=== PATIENT | male | born 1955 | race Caucasian/White ===

== ENCOUNTER → 2018-09-22 17:50 | Outpatient (CLI) | payer BC, SELFPAY ==
[2015-12-21 20:18] VITALS: BMI 34.8
== END ==
PROVIDERS: Family Provider Family Medicine; PCP Family Medicine; Referring Provider Nurse Practitioner Family; Visit Provider Nurse Practitioner Family
DX: R35.0 Frequency of micturition (principal)
CPT/HCPCS: 87086

== ENCOUNTER → 2018-11-30 07:31 | Outpatient (CLI) | payer BC, SELFPAY ==
[2015-12-21 20:18] VITALS: BMI 34.8
--- NOTE | 2018-11-30 07:42 | US_ITS ---
PROCEDURES: ULTRASOUND AORTA REASON FOR EXAM: Male, 63 years old. Abdominal aortic aneurysm seen on CT TECHNIQUE: Ultrasound evaluation of the aorta was performed with real-time and static dickinson-scale imaging. COMPARISON: CT abdomen and pelvis dated 09/21/2015 FINDINGS: There is no elongation or tortuosity of the abdominal aorta. Aorta measures: Proximal 2.3 cm. Middle 1.7 cm. Distal 3.2 cm. Aorta measure transversely: Proximal 2.9 cm. Middle 1.9 cm. Distal 3.2 cm. Right iliac artery measures: 1 cm. Right iliac artery measure transversely: 1.1 cm. Left iliac artery measures: 0.8 cm. Left iliac artery measure transversely: 1.1 cm. There is a demonstrated aneurysm.. Distal aortic fusiform aneurysm; 3.2 x 3.2 cm US/Aorta IMPRESSION: Fusiform distal aortic aneurysm as detailed above Electronically Signed: Renny Muñoz DO at 10:44 EDT Tel , Service support ,
[2018-11-30 09:48] LABS: ALB/GLOB Ratio 1.1 RATIO (0.9-2.4); AST(SGOT) 16 U/L (15-37); Alanine Aminotransfer ALT/SGPT 26 U/L (16-61); Albumin, Serum 3.8 g/dL (3.2-5.0); Alkaline Phosphatase 88 U/L (45-117); Anion Gap 6 (5-15); BUN 22 mg/dL (7-18); BUN/Creat Ratio 24.7 RATIO (10-20); Calcium,Total 8.8 mg/dL (8.5-10.1); Chloride 105 mmol/L (98-107); Cholesterol 187 mg/dL (200); Creatinine, Serum 0.89 mg/dL (0.70-1.30); EST Glomerular Filtration Rate 92 mL/min (>60); Est Glom Filt Rate - Afr Amer 111 mL/min (>60); Globulin 3.5 g/dL (2.2-4.2); Glucose 105 mg/dL (74-106); High Density Lipoprotein 45 mg/dL; PSA,Total - Annual Screen 0.93 ng/mL (0.00-4.00); Potassium 4.2 mmol/L (3.5-5.1); Protein, Total 7.3 g/dL (6.4-8.2); Sodium Level 141 mmol/L (136-145); Triglycerides 84 mg/dL; Very Low Density Lipoprotein 17 mg/dL (5-40)
== END ==
PROVIDERS: Family Provider Family Medicine; PCP Family Medicine; Referring Provider Family Medicine; Visit Provider Family Medicine
DX: Z00.00 Encounter for general adult medical examination without abnormal findings (principal); I71.4 Abdominal aortic aneurysm, without rupture; R73.01 Impaired fasting glucose; Z12.5 Encounter for screening for malignant neoplasm of prostate
CPT/HCPCS: 36415; 76775; 80053; 80061; 84153; G0103

== ENCOUNTER 2019-02-12 00:14 | Emergency (ER) | payer BC, SELFPAY ==
[2019-02-12 00:25] VITALS: BP 139/88; PULSE 102; RESP 18; TEMP 36.4; O2SAT 93; BMI 36.1
[2019-02-12 00:31] VITALS: O2SAT 93
--- NOTE | 2019-02-12 00:56 | EKG12_ITS ---
Test Reason : SOB Blood Pressure : / mmHG Vent. Rate : 100 BPM Atrial Rate : 100 BPM P-R Int : 176 ms QRS Dur : 078 ms QT Int : 338 ms P-R-T Axes : 087 025 050 degrees QTc Int : 436 ms Normal sinus rhythm Normal ECG Confirmed by RANCHO LE, CARRINGTON ([id number]), scientific publications editor YEFRI GARCIA ([id number]) on 02/13/2019 1:49:36 PM Referred By: BB Confirmed By:CARRINGTON VICKERS MD
--- NOTE | 2019-02-12 00:56 | RAD_ITS ---
HISTORY: COUGH Tamp; SOB X 2 DAYSINCREASED SEVERITY TONIGHTHX OF COPD ADDITIONAL HISTORY: None provided. COMPARISON: 12/21/2015 TECHNIQUE: Frontal and lateral chest radiographs. Number of images including paperwork: 2 FINDINGS: LUNGS AND PLEURA: Hyperinflation. No consolidation, mass or pleural effusion. Peribronchial thickening. CARDIAC SILHOUETTE: Unremarkable. MEDIASTINUM AND LEIDY: Aortic calcification. UPPER ABDOMEN: Unremarkable. SKELETON AND SOFT TISSUES: No acute findings. Degenerative changes. OTHER DEVICES AND HARDWARE: None. RAD/Chest PA and Lateral IMPRESSION: Peribronchial thickening as can be seen with bronchitis and airways disease. Hyperinflation suggesting COPD. at 0142 Reported and signed by: Sarah Zabala MD Electronically Signed: Sarah Zabala MD at 1:42 EDT Tel , Service support ,
--- NOTE | 2019-02-12 00:56 | ED.VIS.DYS ---
History of Present Illness Chief Complaint: Shortness of Breath Informant: Patient Onset: Days - 2 Activity at onset: Exertion Timing: Continuous Quality: Wheezing Current Severity: Mild Maximum Severity: Moderate Worsened by: Coughing, Exertion. Not Worsened By: Lying flat Relieved by: Albuterol - and atrovent en route by EMS, Oxygen, Rest Associated Symptoms: Cough, White sputum, Yellow sputum. Negative for: Bloody Sputum, Ear pain, Fever, Rhinorrhea, Sore throat, Sweats Chest Pain: Continuous, Tightness - mild Narrative: Feels like COPD flaring up. Very hot and humid weather. Does have air conditioning. No swelling in his legs. No history of heart problems that he knows of. Prior similar symptoms: Yes - COPD - Past Medical History (1) COPD (chronic obstructive pulmonary disease) Status: Chronic (2) GERD (gastroesophageal reflux disease) Status: Chronic (3) Hypertension Status: Chronic Past Medical History - Allergies and Home Meds Allergies/Adverse Reactions: Allergies No Known Allergies Allergy (Verified 02/12/19 00:15) Primary Care Physician: Gary Ramirez MD [Primary Care Provider] - Surgical History: - - Remote hx of back surgery Lives: With Family Smoking Status: Former smoker - Family History Maternal Family History: Reports: Dementia Paternal Family History: Reports: Heart Disease Review of Systems General: Denies: Chills, Fever, Sweats Eyes: Denies: Visual changes - bilaterally, Diplopia ENT: Denies: Rhinorrhea, Sore throat Cardiovascular: Reports: Chest pain. Denies: Palpitations Respiratory: Reports: Dyspnea, Cough, Sputum, Dyspnea on exertion. Denies: Orthopnea Gastrointestinal: Denies: Abdominal pain, Nausea, Vomiting, Diarrhea, Melena, Hematochezia Genitourinary: Denies: Dysuria, Hematuria, Frequency Musculoskeletal: Denies: Back pain, Extremity Pain Skin: Denies: Rash, Wounds Neurological: Denies: Headache, Weakness, Numbness Physical Exam Vital Signs/Narrative: Vital Signs Temp Pulse Resp BP Pulse Ox 02/12/19 00:25 97.6 F L 102 H 18 139/88 H 93 General: Well nourished, Well developed, No Acute Distress Head: Normocephalic, Atraumatic Eyes: Perrl, EOMI ENT: Moist mucous membranes, No rhinorrhea Neck: Supple, Nontender Cardiovascular: Regular rate, Regular rhythm, No murmurs Respiratory: No distress, Chest nontender, Wheezing - Slight end expiratory bilaterally, Diminished Abdomen: Soft, Nontender, Nondistended, Normal bowel sounds Back: Nontender, Normal Inspection Extremities: Nontender, No edema. Negative for: Calf Tenderness Skin: Normal color, No rash, No Trauma Neurological: Alert, Oriented x3, Cranial nerves II-XII grossly intact, Normal Strength, Normal Sensation Psychological: Normal affect, Normal Mood Diagnostic/Tx/Re-eval Impressions Chest X-Ray 02/12/19 00:56 IMPRESSION: Peribronchial thickening as can be seen with bronchitis and airways disease. Hyperinflation suggesting COPD. at 0142 Reported and signed by: Sarah Zabala MD Electronically Signed: Sarah Zabala MD at 1:42 EDT Tel , Service support , 02/12/19 00:56 Chest PA and Lateral [RAD] Stat - Rhythm Strip Rhythm Strip: Sinus Rhythm Rate: 100 Ectopy: None - EKG Initial EKG Interpretation: Sinus Rhythm, No Acute Injury Pattern - Normal EKG Treatment - Dyspnea: Oxygen, Albuterol, Antibiotics, Steroid Repeat Evaluation: Improved - Medical Decision Making Patient feeling much better after treatment. Chest x-ray shows chronic scarring, no acute infiltrates. Unknown if this is viral etiology or due to the weather, but we will cover him with broad-spectrum antibiotics and steroids. He is comfortable with discharge home. ED Disposition - Plan for ED Patient: Disposition: Home or Assisted Living Diagnosis: COPD exacerbation Instructions: Copd Flare Prescriptions: Azithromycin 250 mg PO DAILY #4 tab Transmission Status: Pending to [facility] #30 Prednisone [Deltasone] 40 mg PO DAILY #10 tab Transmission Status: Pending to [facility] #[facility] Referrals: Gary Ramirez MD [Primary Care Provider] - 3-5 Days if not improving
[2019-02-12 01:01] VITALS: BP 139/88; PULSE 88; RESP 16; TEMP 36.4; O2SAT 93
[2019-02-12] MEDS: MethylPREDNISolone 125 MG/2 ML Vial IV (01:08)
[2019-02-12 01:35] VITALS: PULSE 94; RESP 18
[2019-02-12] MEDS: Albuterol 2.5 MG/3 ML VIAL.NEB. INHALATION ×2 (01:35→01:43)
[2019-02-12] MEDS: Azithromycin 250 MG Tablet 500 MG PO (02:52)
[2019-02-12 03:01] VITALS: BP 119/70; PULSE 103; RESP 20; O2SAT 92
== END 2019-02-12 03:10 | disposition home or self-care (01) ==
PROVIDERS: Emergency Provider Emergency Medicine; Family Provider Family Medicine; PCP Family Medicine
DX: J44.1 Chronic obstructive pulmonary disease with (acute) exacerbation (principal); I10 Essential (primary) hypertension; K21.9 Gastro-esophageal reflux disease without esophagitis; Z79.899 Other long term (current) drug therapy; Z87.891 Personal history of nicotine dependence
CPT/HCPCS: 71046; 93005; 94640; 96374; 99284; A4216

== ENCOUNTER 2019-02-14 02:35 | Inpatient (IN) | payer BC, SELFPAY ==
[2019-02-14] VITALS (15 sets, daily range): BP systolic 106–153; BP diastolic 57–85; PULSE 90–128; RESP 18–24; TEMP 36.4–37.6; O2SAT 85–96; BMI 38.3; BMI 36.7
--- NOTE | 2019-02-14 02:54 | EKG12_ITS ---
Test Reason : SOB Blood Pressure : / mmHG Vent. Rate : 111 BPM Atrial Rate : 111 BPM P-R Int : 166 ms QRS Dur : 076 ms QT Int : 316 ms P-R-T Axes : 088 038 067 degrees QTc Int : 429 ms Sinus tachycardia Otherwise normal ECG Confirmed by YUSUF SOLOMON ([id number]), mapping editor SERINA TOLBERT ([id number]) on 02/16/2019 9:58:48 AM Referred By: FIONA Confirmed By:YUSUF SOLOMON
--- NOTE | 2019-02-14 02:54 | RAD_ITS ---
HISTORY: SOB AND COUGH HX OF COPD ADDITIONAL HISTORY: None provided. COMPARISON: 02/12/2019 TECHNIQUE: Frontal chest radiograph. Number of images including paperwork: 2 FINDINGS: LUNGS AND PLEURA: No consolidation, mass or pleural effusion. Peribronchial thickening. Mild linear opacities suggestive of subsegmental atelectasis versus scarring. CARDIAC SILHOUETTE: Unremarkable. MEDIASTINUM AND LEIDY: Aortic calcification. UPPER ABDOMEN: Unremarkable. SKELETON AND SOFT TISSUES: No acute findings. OTHER DEVICES AND HARDWARE: None. RAD/Chest 1 View (Portable) IMPRESSION: Peribronchial thickening as can be seen with bronchitis and airways disease. at 0401 Reported and signed by: Sarah Zabala MD Electronically Signed: Sarah Zabala MD at 4:01 EDT Tel , Service support ,
[2019-02-14] MEDS: Albuterol 2.5 MG/3 ML VIAL.NEB. INHALATION (03:10)
[2019-02-14] MEDS: Ipratropium/Albuterol Sulfate 3 ML AMPUL.NEB INHALATION ×6 (03:10→22:50)
[2019-02-14 03:17] LABS: Absolute Lymphocyte Count 1.57 X10^3/uL (0.83-4.51); Basophil# 0.06 X10^3/uL; Basophil% 0.4 % (0-1); Eosinophil# 0.04 X10^3/uL; Eosinophils% 0.2 % (0-5); Hemoglobin 16.5 g/dL (13.0-16.5); Lymphocyte # 1.57 X10^3/ul (4.0); Lymphocyte % 9.2 % (19-41); Mean Corpuscular Hgb 30.9 pg (27.0-32.0); Mean Corpuscular Volume 93.6 fL (80-94); Mean Platelet Vol. 10.3 fl (6.2-12.0); Monocyte# 2.98 X10^3/uL; Monocyte% 17.4 % (0-10); NRBC Flagged by Analyzer 0 % (0-5); Neutrophil # 12.32 X10^3/uL (2.7-7.7); Neutrophil % 71.8 % (47-70); POSITIVE DIFFERENTIAL YES; Platelet Count 293 K/mm3 (150-450); RBC Distribution Width CV 13.5 % (11.6-14.6); RBC Distribution Width SD 47.2 fl (35.1-43.9); Red Blood Count 5.34 M/mm3 (4.6-6.2); White Blood Count 17.1 K/mm3 (4.4-11.0)
[2019-02-14 03:22] LABS: Differential Indicated SCAN CRITERIA MET
[2019-02-14] MEDS: 0.9% Normal Saline 1,000 ML 1000 ML IV (03:25)
[2019-02-14] MEDS: MethylPREDNISolone 125 MG/2 ML Vial IV (03:25)
[2019-02-14 03:32] LABS: Anion Gap 9 (5-15); BUN 33 mg/dL (7-18); BUN/Creat Ratio 33.4 RATIO (10-20); Calcium,Total 9.1 mg/dL (8.5-10.1); Chloride 101 mmol/L (98-107); Creatinine, Serum 0.99 mg/dL (0.70-1.30); EST Glomerular Filtration Rate 82 mL/min (>60); Est Glom Filt Rate - Afr Amer 99 mL/min (>60); Estimated Creatinine Clearance 75.81 ml/min; Glucose 129 mg/dL (74-106); Sodium Level 142 mmol/L (136-145)
[2019-02-14 03:41] LABS: Allen Test POS; Base Excess 3 mmol/L (-2 to +2); Bicarbonate 28.7 mmol/L (22-26); Blood Gas Specimen Type ART; O2 Delivery Device Nasal Can; PO2 73 mmHG (75-100); SITE L Radial; SO2 94 % (95-99); Time Given 330; Total Carbon Dioxide 30 mmol/L; pCO2 51.2 mmHg (35-45); pH 7.36 (7.35-7.45)
[2019-02-14 03:50] LABS: Differential Comment SCANNED
--- NOTE | 2019-02-14 04:44 | ED.DCSUM_ITS ---
- ER Visit Summary Date of Service: 02/14/19 Chief Complaint: Shortness of breath, COPD History of Present Illness: The patient is a 63 M who presents with shortness of breath. Initially began to feel more short of breath 5 days ago. He developed a productive cough with green sputum. He was seen 3 days ago and diagnosed with a COPD flare. He was put on antibiotics and steroids. He did initially improved. However he is began to worsen last night. He complains of a lot of chest tightness. No fevers no pain no vomiting. He quit smoking 5 years ago. Physical Examination: Heart rate 124, respiratory rate 23, initial pulse ox 85% on 2 L improved to greater than 92% on 4 L Heart is regular tachycardia Patient has severely diminished air exchange throughout lung fletcher Abdomen soft Alert Test Results: EKG shows sinus rhythm at a rate of 111. Labs notable for white count of 17.1, lactic acid normal. ABG shows pH 7.36, PCO2 51, PO2 33. Chest x-ray shows peribronchial thickening. Emergency Department Course and Treatment: Patient was treated with IV Solu- Medrol and albuterol and Atrovent aerosols. Given his initial improvement and then worsening I was also concerned about possible pneumonia so lactic acid and cultures were sent. X-ray does not show any focal infiltrate. He is improved on reevaluation. He has improved air exchange. However he is still tachypneic with an increased oxygen requirement. I do feel he has failed outpatient treatment and will need admission. Patient was discussed with the hospitalist who agrees to admit. Treatment Plan: [] Disposition: Admit Impression: COPD exacerbation This note was generated with [employer] dictation software. It may contain incorrect words, spelling, and punctuation that were not noted in review of the chart prior to signing ED Disposition - Plan for ED Patient: Referrals: Gary Ramirez MD [Primary Care Provider] -
--- NOTE | 2019-02-14 05:04 | HP.PCM_ITS ---
Problem List (1) COPD (chronic obstructive pulmonary disease) Status: Chronic (2) Hypertension Status: Chronic (3) GERD (gastroesophageal reflux disease) Status: Chronic History of Present Illness Date of Admission: 02/14/19 Chief Complaint: Shortness of breath The patient is a 63 year old M with PMH as below who presents with shortness of breath. He states that he started feeling short of breath on Wednesday and he called his doctor and unfortunate was unable to see him, but his doctor did call him in a prescription for azithromycin and prednisone. He has been taking that since Wednesday and initially got a little bit better until last night when he got worse and presented to the hospital. He was a 2 pack-a-day smoker and he quit 5 years ago and he has been doing fairly well since then. He does not have frequent COPD exacerbations and this is probably the worst one requiring admission in 4 years. In the ER he was found to be hypoxic to 85% on his home 2 L, and he also has a leukocytosis which is secondary to his home prednisone that he has been on for 3 days. He does have some sputum production though no fevers or consolidation on his chest x-ray. Past Medical History Past Medical History (Chronic Problems): Chronic Problems COPD (chronic obstructive pulmonary disease) (Chronic) Hypertension (Chronic) GERD (gastroesophageal reflux disease) (Chronic) Allergies No Known Allergies Allergy (Verified 02/14/19 03:26) Home Medications: Ambulatory Orders Medication Instructions Recorded Valsartan [Diovan] 160 mg PO DAILY 03/28/14 Pantoprazole Sodium [Protonix] 40 mg PO DAILY 12/21/15 Albuterol Inhaler [Ventolin Hfa] 2 puff INHALATION Q4H PRN PRN #2 12/24/15 inhaler Fluticasone/Salmeterol [Advair 1 puff INHALATION BID #2 inhaler 12/24/15 250/50 Mcg Diskus] Oxygen, Home [Home Oxygen] 2 lpm NASAL CONT #1 unit 12/24/15 Azithromycin 250 mg PO DAILY #4 tab 02/12/19 Prednisone [Deltasone] 40 mg PO DAILY #10 tab 02/12/19 Surgical History: - - Remote hx of back surgery Psychiatric History: No pertinent psych hx Smoking Status: Former smoker Tobacco Use: Cigarettes Alcohol: None Drugs: None - *Family History Maternal History Items: Diabetes, Dementia Paternal History Items: Diabetes, Heart Disease Review of Systems Constitutional: Denies: Chills, Fever, Weight Change HEENT: Denies: Head Aches, Sinus Congestion, Sinus Drainage Cardiovascular: Denies: Chest Pain, Palpitations Respiratory: Reports: Cough, Shortness of Breath, Sputum production. Denies: Shortness of breath at rest Gastrointestinal: Denies: Abdominal Pain, Nausea, Vomiting Genitourinary: Denies: Dysuria Musculoskeletal: Denies: Joint Pain, Joint Tenderness Skin: Denies: Rash, Wounds Neurological: Denies: Numbness, Tingling, Focal weakness Psychiatric: Denies: Anxiety, Depression Hematologic/ Lymphatic: Denies: Easy Bruising, Easy Bleeding VTE Information - Inpt Only VTE Present on Admission: No - Physical Exam General: Alert, Oriented x3, Cooperative, No apparent distress HEENT: Atraumatic, PERRLA, EOMI, Normocephalic Oral: Dry Mucosa Neck: Supple, No JVD Lungs: Diminished, Wheezes, - - Poor air movement Cardiovascular: Regular rate, Regular Rhythm, Normal S1, Normal S2, No murmurs Abdomen: Soft, Non Tender, Non-Distended, No Hepato-splenomegaly Extremities: No edema, Capillary Refill Less than 3 Seconds Skin: No rashes, No breakdown Neurological: Neuro grossly intact, Sensory exam intact to light touch and pain Psych/Mental Status: Normal Affect, Appropriate Vital Signs Temp Pulse Resp BP Pulse Ox 98.2 F 102 H 20 H 126/76 H 94 02/14/19 02:36 02/14/19 04:59 02/14/19 04:59 02/14/19 04:59 02/14/19 04:59 Oxygen Flow Rate (L/min) 4 Oxygen Delivery Method Nasal Cannula Weight: 252 lb 3.341 oz Body Mass Index (BMI) 38.3 Laboratory Tests Past 24 Hrs 02/14/19 02/14/19 02/14/19 03:05 03:05 03:05 WBC 17.1 H RBC 5.34 Hgb 16.5 Hct 50.0 MCV 93.6 MCH 30.9 MCHC 33.0 RDW Std Deviation 47.2 H RDW Coeff of Alberto 13.5 Plt Count 293 MPV 10.3 Immature Gran % (Auto) 1.000 H Neut % (Auto) 71.8 H Lymph % (Auto) 9.2 L Sublette % (Auto) 17.4 H Eos % (Auto) 0.2 Baso % (Auto) 0.4 Absolute Neuts (auto) Not Reportable Absolute Lymphs (auto) 1.57 Absolute Nucleated RBC 0.00 Nucleated RBC % 0 Differential Comment SCANNED Diff Path Review May foll Specimen Type Sample Site pH Bicarbonate Actual POC Total CO2 Base Excess O2 Saturation ABG pCO2 ABG pO2 Ubaldo Test O2 Delivery Device Liter Flow Blood Gas Notified Whom Blood Gas Notified Time Sodium 142 Potassium 4.0 Chloride 101 Carbon Dioxide 32.0 Anion Gap 9 BUN 33 H Creatinine 0.99 Estim Creat Clear Calc 75.81 Est GFR (MDRD) Af Amer 99 Est GFR (MDRD) Non-Af 82 BUN/Creatinine Ratio 33.4 H Glucose 129 H Lactic Acid 1.0 Calcium 9.1 02/14/19 03:34 WBC RBC Hgb Hct MCV MCH MCHC RDW Std Deviation RDW Coeff of Alberto Plt Count MPV Immature Gran % (Auto) Neut % (Auto) Lymph % (Auto) Sublette % (Auto) Eos % (Auto) Baso % (Auto) Absolute Neuts (auto) Absolute Lymphs (auto) Absolute Nucleated RBC Nucleated RBC % Differential Comment Diff Path Review Specimen Type ART Sample Site L Radial pH 7.36 Bicarbonate Actual 28.7 H POC Total CO2 30 Base Excess 3 H O2 Saturation 94 L ABG pCO2 51.2 H ABG pO2 73 L Ubaldo Test POS O2 Delivery Device Nasal Can Liter Flow 4.0 Blood Gas Notified Whom ED MD Blood Gas Notified Time 330 Sodium Potassium Chloride Carbon Dioxide Anion Gap BUN Creatinine Estim Creat Clear Calc Est GFR (MDRD) Af Amer Est GFR (MDRD) Non-Af BUN/Creatinine Ratio Glucose Lactic Acid Calcium Assessment/Plan All Active Problems COPD exacerbation (Acute) Leukocytosis (Acute) 1. Acute on chronic hypoxic respiratory failure secondary to COPD exacerbation -Continue with his oral prednisone -Start duo nebs every 4 while awake -Resume his home Advair -We will continue with nasal cannula, he does wear 2 L as needed at home -Blood cultures are pending, however chest x-ray is negative for consolidation 2. HTN -Blood pressure is stable in the 110's to 140s -Continue with valsartan 3. GERD -Stable -Continue with PPI DVT: Lovenox Code Visit Inpatient E&M: 52005 Init Hosp L2
--- NOTE | 2019-02-14 08:06 | PCM.PN.BLA ---
Progress Note 63-year-old male with past medical history chronic hypoxic respiratory failure secondary COPD, on 2 L of oxygen at home admitted in the early hours of this morning with progressive shortness of breath and has been managed as acute COPD exacerbation. Patient was seen and examined. He feels much better. He feels that things are starting to be loose for him. Denied any fever or chills. He is currently on 4 L of oxygen. We will continue on DuoNeb breathing treatments [id number], continue oral prednisone Possible discharge tomorrow, after evaluating for ambulatory oxygen
[2019-02-14] MEDS: Losartan Potassium 50 MG Tablet PO (09:39)
[2019-02-14] MEDS: Pantoprazole Sodium 40 MG Tablet PO (09:39)
[2019-02-14] MEDS: Enoxaparin 40 MG/0.4 ML Syringe SC (09:39)
[2019-02-14] MEDS: predniSONE 20 MG Tablet 40 MG PO (09:39)
--- NOTE | 2019-02-14 09:49 | CASEMGMT ---
RN CM Assessment Presentation: COPD exacerbation. Intro role of CM and purpose of RN CM assessment to patient in room. Pt is awake, alert and able to participate in assessment. Demographics, PCP and Pharmacy verified. Pt states he is independent and no care needs identified. PCP: Dr. Ramirez Specialists: Pt saw Dr. Kothari in past, is not active with his office now. Preferred Pharmacy: [facility] [place] Insurance: [employer] Prescription Benefit: yes LNOK: , Maddie Hendrix Living Arrangements: Lives independently in home. Denies care needs. Transportation: drives or can drive DME: Oxygen through [facility]: Concentrator only. If continuous O2 is needed, will need new script completed and portable tank delivered to [facility]. (pt denies having nebulizer or CPAP, no other DME) HHC: none Patient DC goals: Home DC PLAN: Home. will nee O2 testing day of DC. Michael DESAI RN ACM
[2019-02-14 11:51] LABS: Pathologist Review Reviewed
[2019-02-15] VITALS (12 sets, daily range): BP systolic 121–159; BP diastolic 63–89; PULSE 76–101; RESP 18–22; TEMP 36.5–36.8; O2SAT 85–96
[2019-02-15 06:03] LABS: Basophil# 0.11 X10^3/uL; Basophil% 0.8 % (0-1); Eosinophil# 0.01 X10^3/uL; Eosinophils% 0.1 % (0-5); Hemoglobin 14.7 g/dL (13.0-16.5); Lymphocyte # 1.64 X10^3/ul (4.0); Lymphocyte % 11.8 % (19-41); Mean Corpuscular Hgb 30.1 pg (27.0-32.0); Mean Corpuscular Volume 94.3 fL (80-94); Mean Platelet Vol. 10.4 fl (6.2-12.0); Monocyte# 2.06 X10^3/uL; Monocyte% 14.9 % (0-10); NRBC Flagged by Analyzer 0 % (0-5); Neutrophil # 9.55 X10^3/uL (2.7-7.7); Neutrophil % 68.8 % (47-70); POSITIVE DIFFERENTIAL YES; Platelet Count 295 K/mm3 (150-450); RBC Distribution Width CV 13.3 % (11.6-14.6); RBC Distribution Width SD 46.6 fl (35.1-43.9); Red Blood Count 4.88 M/mm3 (4.6-6.2); White Blood Count 13.9 K/mm3 (4.4-11.0)
[2019-02-15 06:17] LABS: Anion Gap 6 (5-15); BUN 31 mg/dL (7-18); BUN/Creat Ratio 35.8 RATIO (10-20); Calcium,Total 8.5 mg/dL (8.5-10.1); Chloride 104 mmol/L (98-107); Creatinine, Serum 0.87 mg/dL (0.70-1.30); EST Glomerular Filtration Rate 95 mL/min (>60); Est Glom Filt Rate - Afr Amer 115 mL/min (>60); Estimated Creatinine Clearance 86.26 ml/min; Glucose 115 mg/dL (74-106); Potassium 4.4 mmol/L (3.5-5.1); Sodium Level 143 mmol/L (136-145)
[2019-02-15 06:27] LABS: Differential Indicated SCAN CRITERIA MET
[2019-02-15 06:49] LABS: Differential Comment SCANNED
[2019-02-15] MEDS: Ipratropium/Albuterol Sulfate 3 ML AMPUL.NEB INHALATION ×5 (06:50→23:37)
[2019-02-15] MEDS: predniSONE 20 MG Tablet 40 MG PO (08:50)
[2019-02-15] MEDS: Enoxaparin 40 MG/0.4 ML Syringe SC (08:50)
[2019-02-15] MEDS: Pantoprazole Sodium 40 MG Tablet PO (08:50)
[2019-02-15 09:45] LABS: Pathologist Review Reviewed
--- NOTE | 2019-02-15 11:53 | DCINST_ITS ---
You will use the following diet at home:: Cardiac Discharge Activity: Return to Normal Activity Call your doctor if you observe: Shortness of breath, Dizziness, Fainting spells, Chest pain Allergies/Adverse Reactions: Allergies No Known Allergies Allergy (Verified 02/14/19 03:26) Medications to take at Discharge Valsartan [Diovan] 160 mg PO DAILY 03/28/14 Pantoprazole Sodium [Protonix] 40 mg PO DAILY 12/21/15 Albuterol Inhaler [Ventolin Hfa] 2 puff INHALATION Q4H PRN PRN #2 inhaler 12/24/15 Fluticasone/Salmeterol [Advair 250/50 Mcg Diskus] 1 puff INHALATION BID #2 inhaler 12/24/15 Oxygen, Home [Home Oxygen] 2 lpm NASAL CONT #1 unit 12/24/15 Guaifenesin [Mucinex] 1,200 mg PO BID #28 tbmp.12hr 02/15/19 predniSONE tablet See Taper PO DAILY@0800 #30 tab 02/15/19 The following prescriptions were given: Guaifenesin [Mucinex] 1,200 mg PO BID #28 tbmp.12hr Transmission Status: Pending to [facility] #30 predniSONE tablet See Taper PO DAILY@0800 #30 tab Transmission Status: Pending to [facility] #30 Primary Care Physician: Gary Ramirez MD [Primary Care Provider] - Please follow up with your Primary Care Physician in: 1 Week Test Results: Test results from this visit will be discussed in further detail at your follow- up appointment, if applicable. Please Follow Up With: Dajuan Kothari MD - May see OXIDE FURNACE TENDER When: 1-2 Weeks Proposed Discharge Date: 02/15/19
--- NOTE | 2019-02-15 13:13 | DS.PCM_ITS ---
<Vivian Haddad - Last Filed: 02/15/19 14:16> Discharge Date and Diagnosis Date of Admission: 02/14/19 Date of Discharge: 02/15/19 - Primary Discharge Diagnosis 1. Acute on chronic hypoxic respiratory failure secondary to COPD exacerbation 2. Hypertension 3. GERD - Secondary Discharge Diagnosis Chronic Problems COPD (chronic obstructive pulmonary disease) (Chronic) Hypertension (Chronic) GERD (gastroesophageal reflux disease) (Chronic) Hospital Course and Treatment Imaging Results: Diagnostic Data Chest X-Ray 02/14/19 02:54 IMPRESSION: Peribronchial thickening as can be seen with bronchitis and airways disease. at 0401 Reported and signed by: Sarah Zabala MD Electronically Signed: Sarah Zabala MD at 4:01 EDT Tel , Service support , Operations: None Procedures: None Summary of Care Provided: The patient is a 63 year old M admitted 02/14/2019 due to shortness of breath. 1. Acute on chronic hypoxic respiratory failure secondary to COPD exacerbation- chest x-ray showed no consolidation, mass or pleural effusion. Afebrile. Patient chronically wears 2 L nasal cannula as needed. Oxygen stable on 1 L nasal cannula at discharge. Patient instructed to continue supplement oxygen continuously at home to maintain O2 at or above 90% and may wean as tolerated. Continue albuterol inhaler as needed for shortness of breath/wheezing. Prednisone taper at discharge. Follow-up with primary care in 1 week. Recommended establishing and follow-up with pulmonary medicine, patient reports he has seen Dr. Kothari in the past for PFTs. 2. Hypertension-stable, continue home valsartan regimen. 3. GERD-continue PPI. Patient seen and examined prior to discharge. Physical assessment as noted below. Patient is stable for discharge with follow up recommendations as noted above. This patient was seen by NANCY Joy under the supervision of Dr. Bryan. - Physical Exam General: Alert, Oriented x3, Cooperative HEENT: Atraumatic, PERRLA, EOMI, Normocephalic Neck: Supple, No JVD, Negative Carotid Bruits Lungs: Diminished, Wheezes - mild Cardiovascular: Regular rate, Regular Rhythm, Normal S1, Normal S2, No murmurs Abdomen: Bowel Sounds Present, Soft, Non Tender, Non-Distended Extremities: No clubbing, No cyanosis, No edema, Capillary Refill Less than 3 Seconds Skin: No rashes, No breakdown Musculoskeletal: No Tenderness to Palpation of Joints or Extremities Neurological: Cranial nerves II-XII grossly intact, Neuro grossly intact Psych/Mental Status: Normal Affect, Appropriate Vital Signs Temp Pulse Resp BP Pulse Ox 97.9 F 88 19 H 128/79 H 93 02/15/19 08:25 02/15/19 10:29 02/15/19 10:29 02/15/19 08:25 02/15/19 08:25 Oxygen Flow Rate (L/min) 1 Oxygen Delivery Method Nasal Cannula Weight: 241 lb 6.499 oz Body Mass Index (BMI) 36.7 Intake and Output for Last 24 Hours 02/13/19 02/14/19 02/15/19 23:59 23:59 23:59 Intake Total 690 / 690 620 / 620 Balance 690 / 690 620 / 620 Laboratory Tests Past 24 Hrs 02/15/19 02/15/19 05:30 05:30 WBC 13.9 H RBC 4.88 Hgb 14.7 Hct 46.0 MCV 94.3 H MCH 30.1 MCHC 32.0 RDW Std Deviation 46.6 H RDW Coeff of Alberto 13.3 Plt Count 295 MPV 10.4 Immature Gran % (Auto) 3.600 H Neut % (Auto) 68.8 Lymph % (Auto) 11.8 L [place] % (Auto) 14.9 H Eos % (Auto) 0.1 Baso % (Auto) 0.8 Absolute Neuts (auto) Not Reportable Absolute Nucleated RBC 0.00 Nucleated RBC % 0 Differential Comment SCANNED Diff Path Review Reviewed Sodium 143 Potassium 4.4 Chloride 104 Carbon Dioxide 33.0 H Anion Gap 6 BUN 31 H Creatinine 0.87 Estim Creat Clear Calc 86.26 Est GFR (MDRD) Af Amer 115 Est GFR (MDRD) Non-Af 95 BUN/Creatinine Ratio 35.8 H Glucose 115 H Calcium 8.5 Discharge Diet: Low fat/ Low Cholesterol Discharge Activity: Return to Normal Activity Call your doctor if you observe: Shortness of breath, Dizziness, Fainting spells, Chest pain Home Medications: Medications to take at Discharge Valsartan [Diovan] 160 mg PO DAILY 03/28/14 Pantoprazole Sodium [Protonix] 40 mg PO DAILY 12/21/15 Albuterol Inhaler [Ventolin Hfa] 2 puff INHALATION Q4H PRN PRN #2 inhaler 12/24/15 Fluticasone/Salmeterol [Advair 250/50 Mcg Diskus] 1 puff INHALATION BID #2 inhaler 12/24/15 Albuterol Aerosols [Ventolin Aerosols] 2.5 mg INHALATION Q2H PRN PRN #120 vial.neb. 02/15/19 Guaifenesin [Mucinex] 1,200 mg PO BID #28 tbmp.12hr 02/15/19 Ipratropium/Albuterol Sulfate [Duoneb] 3 ml INHALATION Q4H.RT #120 ampul.neb 02/15/19 Oxygen, Home [Home Oxygen] 2 lpm NASAL CONT 02/15/19 predniSONE tablet See Taper PO DAILY@0800 #30 tab 02/15/19 Following Prescrptions Were Given to Patient: Ipratropium/Albuterol Sulfate [Duoneb] 3 ml INHALATION Q4H.RT #120 ampul.neb Transmission Status: Received by [facility] Guaifenesin [Mucinex] 1,200 mg PO BID #28 tbmp.12hr Transmission Status: Received by [facility] predniSONE tablet See Taper PO DAILY@0800 #30 tab Transmission Status: Received by [facility] Albuterol Aerosols [Ventolin Aerosols] 2.5 mg INHALATION Q2H PRN PRN #120 vial.neb. PRN Reason: Shortness Of Breath Transmission Status: Received by [facility] Primary Care Physician: Gary Ramirez MD [Primary Care Provider] - Please follow up with your Primary Care Physician in: 1 Week Please Follow Up With: Dajuan Kothari MD When: 1-2 Weeks Disposition: Home Minutes spent on discharge:: 35 Patient Condition:: Stable Medical Necessity - Tobacco Use Smoking Status: Former smoker Tobacco Use: Cigarettes Meaningful Use Info Meaningful Use Diagnoses (Choose all that apply): None applicable <Randi,Hawkins - Last Filed: 02/16/19 15:45> Discharge Date and Diagnosis Date of Discharge: 02/16/19 - Secondary Discharge Diagnosis Chronic Problems COPD (chronic obstructive pulmonary disease) (Chronic) Hypertension (Chronic) GERD (gastroesophageal reflux disease) (Chronic) Hospital Course and Treatment Summary of Care Provided: This patient was seen in conjunction with Vivian Haddad NP. I have independently interviewed and examined the patient and reviewed pertinent historical, laboratory, and other data. Please refer to her note for patient's presentation, findings, and recommendations. 63-year-old male with past medical history of COPD, not on oxygen [id number], on PRN 2 L of oxygen especially at night who comes in with complaints of progressive shortness of breath and cough. He denied any fever or chills. Patient was hypoxic in the emergency department, spo2 85%. Admitting chest x-ray showed no acute cardiopulmonary process. Patient was admitted to the telemetry floor and managed as acute COPD. He was initially managed on oral prednisone. He became persistently wheezy and was transitioned to IV Solu-Medrol. He was supposed to have been discharged on 02/15/19 but he complains of still having chest tightness and progressive shortness of breath on exertion. He was kept overnight, managed on breathing treatment, managed on IV steroids. He was discharged on 3 L of oxygen and prescribed nebulizers as well as Mucinex. The day of discharge patient was seen and examined. He denied any new complaints. He felt improved compared to previous day. He was encouraged to continue to use his breathing treatments [id number] and complete his s teroid taper. Physical Exam General: Alert, Oriented x3, Cooperative, comfortable, on 3 L of oxygen, no signs of respiratory distress HEENT: Atraumatic, PERRLA, EOMI, Normocephalic Neck: Supple, No JVD, Negative Carotid Bruits Lungs: Diminished, few scattered Wheezes Cardiovascular: Regular rate, Regular Rhythm, Normal S1, Normal S2, No murmurs Abdomen: Bowel Sounds Present, Soft, Non Tender, Non-Distended Extremities: No clubbing, No cyanosis, No edema, Capillary Refill Less than 3 Seconds Skin: No rashes, No breakdown Musculoskeletal: No Tenderness to Palpation of Joints or Extremities Neurological: Cranial nerves II-XII grossly intact, Neuro grossly intact Psych/Mental Status: Normal Affect, Appropriate ASSESSMENT: 1. Hypoxia secondary to acute COPD exacerbation, POA 2. Acute COPD exacerbation 3. Hypertension 4. GERD - Physical Exam Vital Signs Temp Pulse Resp BP Pulse Ox 97.9 F 88 19 H 128/79 H 95 02/15/19 08:25 02/15/19 10:29 02/15/19 10:29 02/15/19 08:25 02/15/19 13:50 Oxygen Flow Rate (L/min) [ 3 AMBULATION with Oxygen] Oxygen Flow Rate (L/min) 1 Oxygen Delivery Method Nasal Cannula Weight: 109.5 kg Body Mass Index (BMI) 36.7 Intake and Output for Last 24 Hours 02/13/19 02/14/19 02/15/19 23:59 23:59 23:59 Intake Total 690 / 690 620 / 620 Balance 690 / 690 620 / 620 Laboratory Tests Past 24 Hrs 02/15/19 02/15/19 05:30 05:30 WBC 13.9 H RBC 4.88 Hgb 14.7 Hct 46.0 MCV 94.3 H MCH 30.1 MCHC 32.0 RDW Std Deviation 46.6 H RDW Coeff of Alberto 13.3 Plt Count 295 MPV 10.4 Immature Gran % (Auto) 3.600 H Neut % (Auto) 68.8 Lymph % (Auto) 11.8 L [place] % (Auto) 14.9 H Eos % (Auto) 0.1 Baso % (Auto) 0.8 Absolute Neuts (auto) Not Reportable Absolute Nucleated RBC 0.00 Nucleated RBC % 0 Differential Comment SCANNED Diff Path Review Reviewed Sodium 143 Potassium 4.4 Chloride 104 Carbon Dioxide 33.0 H Anion Gap 6 BUN 31 H Creatinine 0.87 Estim Creat Clear Calc 86.26 Est GFR (MDRD) Af Amer 115 Est GFR (MDRD) Non-Af 95 BUN/Creatinine Ratio 35.8 H Glucose 115 H Calcium 8.5 Code Visit Inpatient E&M: 86939 Disch Hosp
--- NOTE | 2019-02-15 14:00 | CASEMGMT ---
Addendum entered by Adrienne Vázquez 02/15/19 14:24: Per Dr. Bryan, pt will also need nebulizer at discharge. Nebulizer added to order and re-faxed to [facility] at this time. Call to Shelli at [facility] to notify of nebulizer added, voices understanding. Nj JOSE CM Original Note: Per Lesly at [facility], pt has an order for 2liters continuous oxygen on file but pt had returned portability AMA 2 years ago so they will need a new order faxed if pt needs continuous as pt has only been on home oxygen at bedtime per his account. Per Karely JOSE, pt did qualify for continuous oxygen 3 liters at this time. New order for 3 liters of home oxygen faxed to [facility] at this time. Call to Lesly at [facility] and she is aware of referral and need for portability at this time. Nj JOSE CM
[2019-02-15] MEDS: 0.9% NaCl Peripheral Flush Adult/Peds IV ×2 (15:14→21:24)
--- NOTE | 2019-02-15 16:28 | PCM.PROGNOTE ---
<Vivian Haddad - Last Filed: 02/15/19 16:31> Subjective: Patient seen and examined. Initially felt improved this morning and now continues to have shortness of breath and tightness in his chest. Discharge canceled and will continue IV Solu-Medrol and aerosols overnight. - Physical Exam General: Alert, Oriented x3, Cooperative HEENT: Atraumatic, PERRLA, EOMI, Normocephalic Neck: Supple, No JVD, Negative Carotid Bruits Lungs: Diminished, Wheezes Cardiovascular: Regular rate, Regular Rhythm, Normal S1, Normal S2, No murmurs Abdomen: Bowel Sounds Present, Soft, Non Tender, Non-Distended Extremities: No clubbing, No cyanosis, No edema, Capillary Refill Less than 3 Seconds Skin: No rashes, No breakdown Musculoskeletal: No Tenderness to Palpation of Joints or Extremities Neurological: Cranial nerves II-XII grossly intact, Neuro grossly intact Psych/Mental Status: Normal Affect, Appropriate Vital Signs Temp Pulse Resp BP Pulse Ox 98.2 F 101 H 22 H 159/74 H 93 02/15/19 15:33 02/15/19 15:33 02/15/19 15:33 02/15/19 15:33 02/15/19 15:33 Oxygen Flow Rate (L/min) [ 3 AMBULATION with Oxygen] Oxygen Flow Rate (L/min) 3 Oxygen Delivery Method Nasal Cannula Weight: 241 lb 6.499 oz Body Mass Index (BMI) 36.7 Intake and Output for Last 24 Hours 02/13/19 02/14/19 02/15/19 23:59 23:59 23:59 Intake Total 690 / 690 620 / 620 Balance 690 / 690 620 / 620 Laboratory Tests Past 24 Hrs 02/15/19 02/15/19 05:30 05:30 WBC 13.9 H RBC 4.88 Hgb 14.7 Hct 46.0 MCV 94.3 H MCH 30.1 MCHC 32.0 RDW Std Deviation 46.6 H RDW Coeff of Alberto 13.3 Plt Count 295 MPV 10.4 Immature Gran % (Auto) 3.600 H Neut % (Auto) 68.8 Lymph % (Auto) 11.8 L [place] % (Auto) 14.9 H Eos % (Auto) 0.1 Baso % (Auto) 0.8 Absolute Neuts (auto) Not Reportable Absolute Nucleated RBC 0.00 Nucleated RBC % 0 Differential Comment SCANNED Diff Path Review Reviewed Sodium 143 Potassium 4.4 Chloride 104 Carbon Dioxide 33.0 H Anion Gap 6 BUN 31 H Creatinine 0.87 Estim Creat Clear Calc 86.26 Est GFR (MDRD) Af Amer 115 Est GFR (MDRD) Non-Af 95 BUN/Creatinine Ratio 35.8 H Glucose 115 H Calcium 8.5 Medical Necessity - Tobacco Use Smoking Status: Former smoker Tobacco Use: Cigarettes Assessment/Plan All Active Problems COPD exacerbation (Acute) Leukocytosis (Acute) 1. Acute on chronic hypoxic respiratory failure secondary to COPD exacerbation-chest x-ray showed no consolidation, mass or pleural effusion. Afebrile. Patient chronically wears 2 L nasal cannula as needed. Albuterol and DuoNeb aerosols. Walking pulse ox completed and patient will require 3 L nasal cannula with ambulation at discharge. Prescription written for nebulizer and aerosols for discharge given chronic hypoxic respiratory failure and chronic COPD. Continue IV Solu-Medrol. Mucinex 1200 mg twice daily. Possible discharge tomorrow if patient feels improved. Recommend follow-up with pulmonary medicine at discharge for repeat pulmonary function testing and routine follow-up for chronic COPD. 2. Hypertension-stable, continue home valsartan regimen. 3. GERD-continue PPI. DVT prophylaxis-Lovenox subcu This patient was seen by NANCY Joy under the supervision of Dr. Bryan. <Dori Bryan - Last Filed: 02/15/19 16:37> - Physical Exam Vital Signs Temp Pulse Resp BP Pulse Ox 98.2 F 101 H 22 H 159/74 H 93 02/15/19 15:33 02/15/19 15:33 02/15/19 15:33 02/15/19 15:33 02/15/19 15:33 Oxygen Flow Rate (L/min) [ 3 AMBULATION with Oxygen] Oxygen Flow Rate (L/min) 3 Oxygen Delivery Method Nasal Cannula Weight: 109.5 kg Body Mass Index (BMI) 36.7 Intake and Output for Last 24 Hours 02/13/19 02/14/19 02/15/19 23:59 23:59 23:59 Intake Total 690 / 690 620 / 620 Balance 690 / 690 620 / 620 Laboratory Tests Past 24 Hrs 02/15/19 02/15/19 05:30 05:30 WBC 13.9 H RBC 4.88 Hgb 14.7 Hct 46.0 MCV 94.3 H MCH 30.1 MCHC 32.0 RDW Std Deviation 46.6 H RDW Coeff of Alberto 13.3 Plt Count 295 MPV 10.4 Immature Gran % (Auto) 3.600 H Neut % (Auto) 68.8 Lymph % (Auto) 11.8 L [place] % (Auto) 14.9 H Eos % (Auto) 0.1 Baso % (Auto) 0.8 Absolute Neuts (auto) Not Reportable Absolute Nucleated RBC 0.00 Nucleated RBC % 0 Differential Comment SCANNED Diff Path Review Reviewed Sodium 143 Potassium 4.4 Chloride 104 Carbon Dioxide 33.0 H Anion Gap 6 BUN 31 H Creatinine 0.87 Estim Creat Clear Calc 86.26 Est GFR (MDRD) Af Amer 115 Est GFR (MDRD) Non-Af 95 BUN/Creatinine Ratio 35.8 H Glucose 115 H Calcium 8.5 Assessment/Plan This patient was seen in conjunction with Vivian Haddad WINDOWS SOFTWARE DEVELOPER. I have independently interviewed and examined the patient and reviewed pertinent historical, laboratory, and other data. Please refer to her note for patient's presentation, findings, and recommendations. Patient was seen and examined. He feels slightly better but still has tightness in his chest and got a panic attack whilst ambulating from the bathroom to the room. Still wheezing. Vitals were reviewed -stable Physical Exam: Gen: Comfortable, on oxygen, not pale, not jaundiced, alert oriented x3 CVS:HS I +II, regular, no murmurs RESP: Diminished throughout the lungs, wheezes++ GI: BS present and normal, nontender, no palpable organs EXT:No edema ASSESSMENT: 1. Acute on chronic hypoxic respiratory failure 2. Acute COPD exacerbation 3. Hypertension 4. GERD Plan: Switch to IV Solu-Medrol, continue on breathing treatments Will re-evaluate in am Code Visit Inpatient E&M: 74304 Subs Hosp L2
[2019-02-15] MEDS: Losartan Potassium 50 MG Tablet PO (21:24)
[2019-02-15] MEDS: guaiFENesin 1,200 MG Tablet 1200 MG PO (21:24)
[2019-02-16] MEDS: 0.9% NaCl Peripheral Flush Adult/Peds IV ×2 (03:04→05:47)
[2019-02-16] MEDS: Ondansetron 4 MG/2 ML Vial IV (03:04)
[2019-02-16 03:10] VITALS: BP 147/86; PULSE 96; RESP 18; TEMP 36.6; O2SAT 90
[2019-02-16 05:10] VITALS: BP 129/76; PULSE 90; RESP 20; TEMP 36.7; O2SAT 93
[2019-02-16 06:55] VITALS: PULSE 103; RESP 16; O2SAT 91
[2019-02-16] MEDS: Ipratropium/Albuterol Sulfate 3 ML AMPUL.NEB INHALATION ×2 (06:55→10:33)
[2019-02-16] MEDS: Enoxaparin 40 MG/0.4 ML Syringe SC (08:04)
[2019-02-16] MEDS: guaiFENesin 1,200 MG Tablet 1200 MG PO (08:04)
[2019-02-16] MEDS: Pantoprazole Sodium 40 MG Tablet PO (08:04)
[2019-02-16 09:49] VITALS: BP 152/85; PULSE 89; RESP 18; TEMP 36.5; O2SAT 94
[2019-02-16 10:33] VITALS: PULSE 98; RESP 16
--- NOTE | 2019-02-17 10:17 | CASEMGMT ---
RN CM Note: Recommendation for CCN referral was made @ Readmission Meeting. Call to Haja, information given and she states she will review pt. Michael DESAI RN ACM
--- NOTE | 2019-02-17 11:52 | CCN.REFER ---
LONG TALK WITH PATIENT ABOUT CCN SERVICES. PATIENT DECLINING AT THIS TIME. EDUCATION PROVIDED TO PATIENT ON IMPORTANCE OF MONITORING VS AND LUNG SOUNDS CLOSELY TO PREVENT COPD HOSPITALIZATIONS IN THE FUTURE. PHONE NUMBER LEFT IF PATIENT CHANGES MIND. STATES HAS PULMONARY APPT AT END OF SEPT
== END 2019-02-16 11:50 | disposition home or self-care (01) | DRG 189 ==
LOC: ED 04:15 → ICU 05:16 → PCU 02-15 11:31
PROVIDERS: Admitting Provider Family Medicine; Emergency Provider Emergency Medicine; Family Provider Family Medicine; PCP Family Medicine; Visit Provider Internal Medicine
DX: J96.21 Acute and chronic respiratory failure with hypoxia (principal); J44.1 Chronic obstructive pulmonary disease with (acute) exacerbation; Z87.891 Personal history of nicotine dependence; I10 Essential (primary) hypertension; K21.9 Gastro-esophageal reflux disease without esophagitis; Z99.81 Dependence on supplemental oxygen
CPT/HCPCS: 36415; 36600; 71045; 80048; 82803; 83605; 85025; 87040; 93005; 94640; 94667; 94668; 97802; 99285; J7030; A4216; J2405

== ENCOUNTER → 2019-03-17 10:39 | Outpatient (CLI) | payer BC, SELFPAY ==
[2019-03-01 11:13] VITALS: BMI 35.4
[2019-03-17 11:22] VITALS: PULSE 104; PULSE 114; PULSE 116; PULSE 124; PULSE 125; PULSE 126; PULSE 127; O2SAT 87; O2SAT 88; O2SAT 89; O2SAT 90; O2SAT 91; O2SAT 93
--- NOTE | 2019-03-17 11:24 | CPS ---
Patient wears 2-3 lpm PRN at home and monitors his SpO2. Started testing on room air, SpO2 91%. At the 1st minute SpO2 dropped to 88%. Placed patient on home tank at 2 lpm conserve dose, SpO2 91%. At 3rd minute SpO2 87%, turned tank to 2 lpm continuous, SpO2 92% and was able to maintain SpO2 >90% for the remainder of testing.
--- NOTE | 2019-03-17 13:13 | PCM.PSN.6M ---
PSN 6 Minute Walk Test - 6 Minute Walk Test 6 Minute Walk Test: 6 Minute Walk Test PSN:6-Minute Walk Test Start: 03/17/19 11:21 Freq: Status: Active Protocol: [id number].[id number] Document 03/17/19 11:22 GASPERBELLA (Rec: 03/17/19 11:27 AVA [id number]) 6 Minute Walk Test Date Performed 03/17/19 Time Performed 11:00 Height 5 ft 8 in Weight: 106.141 kg Weight in Pounds 234.[address]: Dajuan Kothari Assistive device used: None Pre-test Oxygen Delivery Method Room Air Pulse Ox (%) 91 Pulse Rate (60-100 beats/min) 114 H Dyspnea Nicky Scale (0-10) 0 Exertion Nicky Scale (6-20) 6 1st minute Oxygen Delivery Method Room Air Pulse Ox (%) 88 Pulse Rate (60-100 beats/min) 114 H Dyspnea Nicky Scale (0-10) 2 2nd minute Oxygen Flow Rate (L/min) (L/min) 2 Oxygen Delivery Method Nasal Cannula Pulse Ox (%) 89 Pulse Rate (60-100 beats/min) 104 H 3rd minute Oxygen Flow Rate (L/min) (L/min) 2 Oxygen Delivery Method Nasal Cannula Pulse Ox (%) 87 Pulse Rate (60-100 beats/min) 124 H 4th minute Oxygen Flow Rate (L/min) (L/min) 2 Oxygen Delivery Method Nasal Cannula Pulse Ox (%) 91 Pulse Rate (60-100 beats/min) 125 H 5th minute Oxygen Flow Rate (L/min) (L/min) 2 Oxygen Delivery Method Nasal Cannula Pulse Ox (%) 90 Pulse Rate (60-100 beats/min) 127 H 6th minute Oxygen Flow Rate (L/min) (L/min) 2 Oxygen Delivery Method Nasal Cannula Pulse Ox (%) 90 Pulse Rate (60-100 beats/min) 126 H Dyspnea Nicky Scale (0-10) 1 Exertion Nicky Scale (6-20) 12 Post-test Oxygen Flow Rate (L/min) (L/min) 2 Oxygen Delivery Method Nasal Cannula Pulse Ox (%) 93 Pulse Rate (60-100 beats/min) 116 H Full Laps Walked 15 Partial Lap, Number of Tiles Walked 28 Total Distance Walked (ft) 913 03/17/19 11:24 Cardiopulmonary Services by Wanda Trejo Patient wears 2-3 lpm PRN at home and monitors his SpO2. Started testing on room air, SpO2 91%. At the 1st minute SpO2 dropped to 88%. Placed patient on home tank at 2 lpm conserve dose, SpO2 91%. At 3rd minute SpO2 87%, turned tank to 2 lpm continuous, SpO2 92% and was able to maintain SpO2 >90% for the remainder of testing. Initialized on 03/17/19 11:24 - END OF NOTE - Interpretation Interpretation: The patient was noted to be 91% on room air, but then desaturated to 88% in the first minute. The patient required 2 L continuous flow oxygen to maintain appropriate saturations and was noted to be tachycardic throughout the testing with a peak heart rate of 126 bpm. In total, patient traveled 913 feet. These findings are consistent with a cardiopulmonary limitation exercise tolerance. - Recommendations Recommendations: Patient requires no supplemental oxygen at rest, but should be using 2 L continuous flow with exertion. Patient may benefit from cardiology evaluation.
== END ==
PROVIDERS: Family Provider Family Medicine; PCP Family Medicine; Referring Provider Internal Medicine Critical Care Medicine; Visit Provider Internal Medicine Critical Care Medicine
DX: J43.2 Centrilobular emphysema (principal)
CPT/HCPCS: 94618

== ENCOUNTER → 2019-04-11 13:53 | Outpatient (CLI) | payer BC, SELFPAY ==
[2019-03-01 11:13] VITALS: BMI 35.4
== END ==
PROVIDERS: Family Provider Family Medicine; PCP Family Medicine; Referring Provider Family Medicine; Visit Provider Family Medicine
DX: R35.0 Frequency of micturition (principal)
CPT/HCPCS: 87086

== ENCOUNTER → 2019-05-04 08:04 | Outpatient (CLI) | payer BC, SELFPAY ==
[2019-03-01 11:13] VITALS: BMI 35.4
--- NOTE | 2019-05-04 12:12 | PFT ---
INTRODUCTION: The patient is a 64-year-old male that presents for pulmonary function studies secondary to a diagnosis of COPD. Respiratory therapy reports good patient effort. Bronchodilators were used during testing. INTERPRETATION: Forced expiration spirometry demonstrates the presence of a severe large airways obstructive ventilatory defect. There was a significant response to aerosolized bronchodilators noted, based upon change in FEV1. Spirograms are of good quality and do not plateau indicating slow emptying of the lungs. Body plethysmography was performed and reveals an elevated TLC and RV, indicative of underlying hyperinflation and air trapping. Diffusing capacity by single breath CO was within normal limits at 82% of predicted. When compared to prior pulmonary function studies from 2014, there has been a 24% reduction in FEV1 along with a 12% reduction in DLCO. IMPRESSION: Partially reversible severe large airways obstructive ventilatory defect with associated hyperinflation and air trapping. There has been worsening the patient's pulmonary function study since January 2015, as noted above.
== END ==
PROVIDERS: Family Provider Family Medicine; PCP Family Medicine; Referring Provider Internal Medicine Critical Care Medicine; Visit Provider Internal Medicine Critical Care Medicine
DX: J43.2 Centrilobular emphysema (principal)
CPT/HCPCS: 94060; 94726; 94729

== ENCOUNTER → 2019-06-29 13:41 | Outpatient (CLI) | payer BC, SELFPAY ==
[2019-06-12 13:33] VITALS: BMI 37.0
--- NOTE | 2019-06-29 13:42 | ECHOD_ITS ---
Reason For Study: PHTN Procedure This was a 2D Doppler, Color Flow transthoracic echocardiogram. Exam performed in department. Left Ventricle Normal LV size. The estimated ejection fraction is 55 %. Normal diastology for age. No regional wall motion abnormalities noted. Right Ventricle Normal RV size. Normal systolic function. Atria Normal left atrium. Normal right atrium. No doppler evidence for ASD. Mitral Valve There is no mitral valve stenosis. No mitral valve insufficiency. Tricuspid Valve There is no tricuspid stenosis. Trivial tricuspid valve insufficiency. Pulmonary artery systolic pressure is 40 mmHg. Aortic Valve Trisinus/trileaflet aortic valve. There is no aortic stenosis. No aortic valve insufficiency. Pulmonic Valve There is no pulmonic valvular stenosis. Trivial pulmonic valve insufficiency. Great Vessels Normal aortic root. Pericardium/Pleural No pericardial effusion. MMode/2D Measurements & Calculations LVIDd: 4.2 cm IVSd: 1.0 cm Ao root diam: 3.2 cm LVIDs: 2.7 cm LVPWd: 1.2 cm RVDd: 3.5 cm FS: 35.7 % LAV(MOD-bp): 36.4 ml LA A4 area: 14.3 cm2 LA dimension(2D): 3.6 cm LAV(MOD-bp) Indexed: 16.5 ml/m2 LAV(MOD-sp2): 34.4 ml LAV(MOD-sp4): 36.7 ml RA A4 area: 12.1 cm2 Time Measurements MV dec time: 0.20 sec Doppler Measurements & Calculations MV E max jay: 57.8 cm/sec Lat Peak E' Jay: 10.8 cm/sec Med Peak E' Jay: 7.6 cm/sec MV A max jay: 65.4 cm/sec E/E' lat: 5.3 E/E' med: 7.6 MV E/A: 0.88 Ao V2 max: 100.2 cm/sec LV V1 max: 88.8 cm/sec PA V2 max: 91.5 cm/sec Ao max P.0 mmHg LV V1 max P.2 mmHg TR max jay: 279.7 cm/sec TR max P.4 mmHg Interpretation Summary The estimated ejection fraction is 55 %. Normal diastology for age. Trivial tricuspid valve insufficiency. Pulmonary artery systolic pressure is 40 mmHg. Trivial pulmonic valve insufficiency. Ordering Physician: Dajuan Kothari Referring Physician: Dawood Ramirez Performed By: Karolina Davey RDCS, RVT
== END ==
PROVIDERS: Family Provider Family Medicine; PCP Family Medicine; Referring Provider Internal Medicine Critical Care Medicine; Visit Provider Internal Medicine Critical Care Medicine
DX: J43.2 Centrilobular emphysema (principal); R00.0 Tachycardia, unspecified; I27.20 Pulmonary hypertension, unspecified
CPT/HCPCS: 93306

== ENCOUNTER → 2020-01-25 07:15 | Outpatient (CLI) | payer BC, SELFPAY ==
[2019-09-11 14:03] VITALS: BMI 37.0
[2020-01-25 10:51] LABS: ALB/GLOB Ratio 1.1 RATIO (0.9-2.4); AST(SGOT) 16 U/L (15-37); Alanine Aminotransfer ALT/SGPT 29 U/L (16-61); Albumin, Serum 3.6 g/dL (3.2-5.0); Alkaline Phosphatase 85 U/L (45-117); Anion Gap 2 (5-15); BUN 21 mg/dL (7-18); BUN/Creat Ratio 23.2 RATIO (10-20); Calcium,Total 8.8 mg/dL (8.5-10.1); Chloride 107 mmol/L (98-107); Cholesterol 177 mg/dL (200); Creatinine, Serum 0.91 mg/dL (0.70-1.30); EST Glomerular Filtration Rate 90 mL/min (>60); Est Glom Filt Rate - Afr Amer 109 mL/min (>60); Globulin 3.4 g/dL (2.2-4.2); Glucose 113 mg/dL (74-106); High Density Lipoprotein 46 mg/dL; PSA,Total - Annual Screen 1.17 ng/mL (0.00-4.00); Potassium 4.5 mmol/L (3.5-5.1); Sodium Level 141 mmol/L (136-145); Triglycerides 59 mg/dL; Very Low Density Lipoprotein 12 mg/dL (5-40)
== END ==
PROVIDERS: PCP Family Medicine; Referring Provider Family Medicine; Visit Provider Family Medicine
DX: I10 Essential (primary) hypertension (principal); Z12.5 Encounter for screening for malignant neoplasm of prostate
CPT/HCPCS: 36415; 80053; 80061; 84153; G0103

== ENCOUNTER → 2020-07-18 09:07 | Outpatient (CLI) | payer BC, SELFPAY ==
[2020-06-04 14:00] VITALS: BMI 38.5
--- NOTE | 2020-07-18 09:09 | US_ITS ---
PROCEDURES: ULTRASOUND AORTA REASON FOR EXAM: Male, 65 years old. aaa TECHNIQUE: Ultrasound evaluation of the aorta was performed with real-time and static dickinson-scale imaging. COMPARISON: Comparison is made with prior study dated 11/30/2018. FINDINGS: There is no elongation or tortuosity of the abdominal aorta. Aorta measures: Middle 1.8 cm. Distal 3.0 cm. Aorta measure transversely: Middle 2.2 cm. Distal 3.0 cm. Right iliac artery measures: 1.1 cm. Right iliac artery measure transversely: 1.2 cm. Left iliac artery measures: 1.0 cm. Left iliac artery measure transversely: 1.3 cm. Stable fusiform infrarenal abdominal aortic aneurysm measuring 3 cm x 3 cm. This is stable.. US/Aorta IMPRESSION: Stable fusiform infrarenal abdominal aortic aneurysm with a transverse dimension of 3 cm. This is unchanged. Electronically Signed: Orlin Bashir, at 11:46 EST , Service support ,
== END ==
PROVIDERS: PCP Family Medicine; Referring Provider Family Medicine; Visit Provider Family Medicine
DX: I71.4 Abdominal aortic aneurysm, without rupture (principal)
CPT/HCPCS: 76775

== ENCOUNTER → 2021-04-22 11:52 | Outpatient (CLI) | payer BC, SELFPAY | PROVIDERS: PCP Family Medicine; Referring Provider Nurse Practitioner Acute Care; Visit Provider Nurse Practitioner Acute Care | DX: U07.1 COVID-19 (principal) | CPT/HCPCS: 87635; C9803; U0005; U0003 ==

== ENCOUNTER 2021-04-23 19:49 | Outpatient (CLI) | payer BC, SELFPAY ==
[2021-04-23] MEDS: 0.9% Saline Lock 10 ML Syringe IV (20:00)
[2021-04-23 20:03] VITALS: BP 123/78; PULSE 109; RESP 96; TEMP 37.5; O2SAT 96; BMI 38.0
[2021-04-23 20:48] VITALS: BP 133/74; PULSE 110; RESP 16; TEMP 37.3; O2SAT 94
== END 2021-04-23 20:48 | disposition home or self-care (01) ==
LOC: MS3OUT 19:50 → MS3 19:51
PROVIDERS: PCP Family Medicine; Referring Provider Nurse Practitioner Adult Health; Visit Provider Nurse Practitioner Adult Health
DX: Z23 Encounter for immunization (principal); U07.1 COVID-19
CPT/HCPCS: J7050; M0243; A4216; Q0244

== ENCOUNTER → 2021-12-10 | Outpatient (CLI) | payer BC, SELFPAY ==
[2021-12-10 15:09] LABS: Hematocrit 50.9 % (40-54); Hemoglobin 16.5 g/dL (13.0-16.5); Mean Corp Hgb Conc 32.4 g/dL (32-36); Mean Corpuscular Hgb 30.4 pg (27.0-32.0); Mean Corpuscular Volume 93.7 fL (80-94); Platelet Count 241 K/mm3 (150-450); RBC Distribution Width CV 13.8 % (11.6-14.6); RBC Distribution Width SD 47.8 fl (35.1-43.9); Red Blood Count 5.43 M/mm3 (4.6-6.2); White Blood Count 9.2 K/mm3 (4.4-11.0)
[2021-12-10 15:43] LABS: ALB/GLOB Ratio 1.1 RATIO (0.9-2.4); AST(SGOT) 14 U/L (15-37); Alanine Aminotransfer ALT/SGPT 29 U/L (16-61); Albumin, Serum 3.6 g/dL (3.2-5.0); Alkaline Phosphatase 77 U/L (45-117); Anion Gap 5 (5-15); BUN 23 mg/dL (7-18); BUN/Creat Ratio 26.9 RATIO (10-20); Calcium,Total 8.9 mg/dL (8.5-10.1); Chloride 105 mmol/L (98-107); Creatinine, Serum 0.85 mg/dL (0.70-1.30); EST Glomerular Filtration Rate 96 mL/min (>60); Est Glom Filt Rate - Afr Amer 116 mL/min (>60); Globulin 3.4 g/dL (2.2-4.2); Glucose 114 mg/dL (74-106); Magnesium 1.9 mg/dL (1.6-2.6); Sodium Level 138 mmol/L (136-145); Thyroid Stim Hormone (TSH) 1.03 uIU/mL (0.358-3.74)
== END | disposition home or self-care (01) ==
LOC: MTLAB 12:41
PROVIDERS: PCP Family Medicine; Referring Provider Family Medicine; Visit Provider Family Medicine
DX: R60.0 Localized edema (principal)
CPT/HCPCS: 36415; 80053; 83735; 84443; 85027

== ENCOUNTER → 2021-12-18 | Outpatient (CLI) | payer BC, SELFPAY ==
[2021-12-18 10:38] LABS: AST(SGOT) 17 U/L (15-37); Alanine Aminotransfer ALT/SGPT 27 U/L (16-61); Albumin, Serum 3.4 g/dL (3.2-5.0); Alkaline Phosphatase 77 U/L (45-117); Anion Gap 8 (5-15); BUN 28 mg/dL (7-18); BUN/Creat Ratio 28.3 RATIO (10-20); Calcium,Total 9.1 mg/dL (8.5-10.1); Chloride 107 mmol/L (98-107); Cholesterol 163 mg/dL (200); Creatinine, Serum 0.99 mg/dL (0.70-1.30); EST Glomerular Filtration Rate 81 mL/min (>60); Est Glom Filt Rate - Afr Amer 98 mL/min (>60); Globulin 3.3 g/dL (2.2-4.2); Glucose 146 mg/dL (74-106); High Density Lipoprotein 44 mg/dL; PSA,Total - Annual Screen 2.87 ng/mL (0.00-4.00); Potassium 3.9 mmol/L (3.5-5.1); Protein, Total 6.7 g/dL (6.4-8.2); Sodium Level 141 mmol/L (136-145); Triglycerides 77 mg/dL; Very Low Density Lipoprotein 15 mg/dL (5-40)
== END | disposition home or self-care (01) ==
LOC: MTLAB 08:06
PROVIDERS: PCP Family Medicine; Referring Provider Family Medicine; Visit Provider Family Medicine
DX: R60.0 Localized edema (principal); E78.5 Hyperlipidemia, unspecified; N40.0 Benign prostatic hyperplasia without lower urinary tract symptoms
CPT/HCPCS: 36415; 80053; 80061; 84153; G0103

== ENCOUNTER → 2022-03-03 | Outpatient (CLI) | payer BC, SELFPAY | END | disposition home or self-care (01) | PROVIDERS: PCP Family Medicine; Visit Provider Family Medicine | DX: U07.1 COVID-19 (principal) | CPT/HCPCS: 87635; U0003; U0005 ==

== ENCOUNTER → 2023-02-02 | Outpatient (CLI) | payer BC, SELFPAY ==
--- NOTE | 2023-02-02 07:48 | AAAS_ITS ---
Reason For Study: screeniing Aorta Measurements Aorta Doppler Measurements Proximal aorta measures1.74 x 1.66cm. in cross- Peak systolic flow velocities within the proximal sectional axis. aorta measure 70.5 cm/sec. Proximal aorta measures1.69cm. in longitudinal Peak systolic flow velocities within the mid aorta axis. measure 70.5 cm/sec. Mid aorta measures1.79 x 1.66cm. in cross- Peak systolic flow velocities within the distal sectional axis. aorta measure 54.2 cm/sec. Mid aorta measures1.79cm. in longitudinal axis. Distal aorta measures3.21 x 3.04cm. in cross- sectional axis. Distal aorta measures3.16cm. in longitudinal axis. Left Iliac Artery Left iliac artery measures .95 x .88 cm. in the cross-sectional axis. Left iliac artery measures .95 cm. in the longitudinal axis. Peak systolic velocity in the left iliac artery measures 181.1 cm/sec. Right Iliac Artery Right iliac artery measures 1.38 x 1.28 cm. in the cross-sectional axis. Right iliac artery measures 1.21 cm. in the longitudinal axis. Peak systolic velocity in the right iliac artery measures 155.3 cm/sec. Procedure Aorta IVC Iliac vasculature or bypass grafts 43678. The exam was diagnostic. Exam performed in department. VL/AAA Screening Interpretation Summary Aorta patent, 3.21 cm aneurysm present Bilateral iliac arteries patent, normal caliber Ordering Physician: Gary Ramirez Performed By: Emmanuel Nayak, RVT
== END | disposition home or self-care (01) ==
LOC: CVS 07:47
PROVIDERS: PCP Family Medicine; Referring Provider Family Medicine; Visit Provider Family Medicine
DX: I71.40 Abdominal aortic aneurysm, without rupture, unspecified (principal)
CPT/HCPCS: 76706

== ENCOUNTER 2023-10-20 12:32 | Emergency (ER) | payer BC, SELFPAY ==
[2023-10-20 12:33] VITALS: BP 178/87; PULSE 103; RESP 16; TEMP 36.3; O2SAT 100; BMI 39.0
[2023-10-20 12:35] VITALS: BP 178/87; PULSE 103; RESP 16
--- NOTE | 2023-10-20 13:38 | EDS_ITS ---
HPI History of Present Illness Chief Complaint: General Illness Informant: patient Narrative Narrative: 68-year-old male history of COPD and a 3 cm infrarenal aortic aneurysm presenting to the emergency room with chief complaint of feeling achy. Patient notes his had vomiting diarrhea over the weekend was recently diagnosed with norovirus. He states that he has been otherwise feeling fine but this morning felt a little shaky generally achy which has resolved. He notes some upper back achiness which has resolved. Denies any fever cough runny nose sore throat chest pain shortness of breath (that is different from his chronic shortness of breath due to COPD) vomiting diarrhea or rash. No abdominal pain. He denies any leg arm or speech changes. [facility] Medical History (Updated 10/20/23 @ 13:[address] El Aguilar DO) COPD (chronic obstructive pulmonary disease) COPD exacerbation GERD (gastroesophageal reflux disease) Hypertension Leukocytosis Home Medications valsartan 160 mg tablet 160 mg PO DAILY blood pressure 03/28/14 [History Last Taken 12/21/15 10:00] pantoprazole 40 mg tablet,delayed release 40 mg PO DAILY stomach 12/21/15 [History Last Taken 12/20/15 10:00] Oxygen, Home [Home Oxygen] 2 lpm CONT oxygen 02/15/19 [History Last Taken Unknown] albuterol sulfate 2.5 mg/3 mL (0.083 %) solution for nebulization 2.5 mg (3 mL) inhalation Q2H PRN PRN Shortness Of Breath ##120 02/15/19 [Rx Last Taken Unknown] ipratropium 0.5 mg-albuterol 3 mg (2.5 mg base)/3 mL nebulization soln 3 ml inhalation Q4H.RT ##120 02/15/19 [Rx Last Taken Unknown] furosemide 20 mg tablet (Lasix) 20 mg PO DAILY 04/15/22 [History Last Taken Unknown] fluticasone fur. 100 mcg-umeclid 62.5 mcg-vilant 25 mcg inhalat.powder (Trelegy Ellipta) 1 inh inhalation QDAY #60 ea 03/15/23 [Rx Last Taken Unknown] albuterol sulfate 90 mcg/actuation aerosol inhaler 2 puff inhalation Q4H PRN PRN SOB, wheezing ##2 06/15/23 [Rx Last Taken Unknown] fluticasone propionate 50 mcg/actuation nasal spray,suspension 2 spray intranasal DAILY #18.2 mL 06/24/23 [Rx Last Taken Unknown] tadalafil 5 mg tablet 5 mg PO DAILY 10/20/23 [History Last Taken Unknown] Allergy/AdvReac Type Severity Reaction Status Date / Time No Known Allergies Allergy Verified 10/20/23 12:35 Family History Father Diabetes Surgical History History of back surgery Social History household members: spouse housing: house Smoking Status: Former smoker Tobacco: How many years used: 30 how long ago did patient quit smokin, 1.5ppd second hand exposure: Yes ROS ROS ED Constitutional Constitutional ED: Denies chills, fever(s) or weight loss Eyes Eyes: Denies change in vision or diplopia ENT ENT ED: Denies ear pain, rhinorrhea or sore throat Cardiovascular Cardiovascular: Denies chest pain, orthopnea, palpitations or racing heartbeat Respiratory/Chest Respiratory/Chest: Denies cough, dyspnea or orthopnea Gastrointestinal Gastrointestinal: Denies abdominal pain, diarrhea, nausea or vomiting Genitourinary Genitourinary ED: Denies dysuria, hematuria or urinary frequency Musculoskeletal Musculoskeletal: Reports other Details: Upper back achy ; Denies arthralgias or myalgias Integumentary Denies abscess or rash Neurologic Neurologic: Reports other Details: Shaky like sensation ; Denies headache(s) or weakness Psychiatric Psychiatric: Denies anxiety, depression, suicidal ideation or suicidal thoughts Endocrine Endocrinology: Denies polydipsia, polyphagia or polyuria Allergic/Immunologic Allergic/Immunologic ED: Denies mouth swelling, tongue swelling or urticaria EXAM Physical Exam Const Vital Signs: 10/20/23 12:33 10/20/23 12:35 10/20/23 12:57 Temperature 97.4 F L Temperature Source Temporal Pulse Rate 103 H 103 H Respiratory Rate 16 16 Respiratory Pattern Normal Blood Pressure 178/87 H 178/87 H Blood Pressure Mean 117 117 Pulse Ox 100 Oxygen Delivery Method Room Air 10/20/23 13:47 Temperature 97.4 F L Temperature Source Pulse Rate 90 Respiratory Rate 26 H Respiratory Pattern Blood Pressure 143/77 H Blood Pressure Mean 99 Pulse Ox 92 Oxygen Delivery Method Positive well nourished and well developed General Appearance ED: well developed HEENT Reports normocephalic, head/scalp atraumatic and moist mucous membranes Eyes PERRL and EOMs intact bilaterally Neck no lymphadenopathy, supple and no JVD Resp normal respiratory effort Resp Narrative: Patient has a very faint end expiratory wheeze bilaterally at the bases. Cardio regular rate, regular rhythm and no murmurs GI normal to inspection, nondistended, normoactive bowel sounds and non-tender Palpation: soft Back/Spine no CVA tenderness and normal ROM Extremity normal to inspection General Extremety ED: Negative for edema General Extremity: Negative for edema Neuro oriented x3 and CN's II-XII intact bilaterally Sensorium / Orientation: alert Motor Exam: strength 5/5 throughout Psych mental status grossly normal Mood & Affect: Negative for depressed or tearful Skin no rashes or lesions noted and no wounds MDM MDM MDM Narrative Medical decision making narrative: Patient's vital signs within normal limits. Laying in the bed he is 95% on room air. Heart rate is about 80 to during my conversation with him. Blood pressure 143/77. I personally took his temperature and it is 97.7. on physical exam I am only appreciating a faint end expiratory wheeze. He states this is not abnormal for him. In speaking with the gentleman and using shared decision making we talked about obtaining some testing but with lack of any localizing or current symptoms he feels comfortable going home. He notes he will return if he is worsening. I think this is very reasonable. At this point patient will be discharged. History & Record Review Discussion w/independent historian: Patient Discharge Plan Triage Chief Complaint: General Illness ED Provider: El Aguilar Dx/Rx/DC Orders Clinical Impression: Myalgia, COPD (chronic obstructive pulmonary disease), Hypertension Prescriptions: No Action furosemide [Lasix] 20 mg tablet 20 mg PO DAILY albuterol sulfate 90 mcg/actuation HFA aerosol inhaler 2 puff inhalation Q4H PRN PRN (Reason: SOB, wheezing) Qty: 2 0RF Patient Comments: breathing valsartan 160 MG tablet 160 mg PO DAILY Patient Comments: heart pantoprazole 40 MG tablet 40 mg PO DAILY Patient Comments: reduce stomach acid Oxygen, Home [Home Oxygen] 2 lpm NASAL CONT Patient Comments: oxygen Rx Instructions: albuterol sulfate 2.5 MG/3 ML solution for nebulization 2.5 mg inhalation Q2H PRN PRN (Reason: Shortness Of Breath) Qty: 120 0RF ipratropium-albuterol 3 ML solution for nebulization 3 ml inhalation Q4H.RT Qty: 120 0RF tadalafil 5 mg tablet 5 mg PO DAILY Trelegy Ellipta 100-62.5-25 mcg blister with device 1 inh INHALATION QDAY Qty: 60 11RF Rx Instructions: administer at approximately the same time(s) each day fluticasone propionate 50 mcg/actuation spray,suspension 2 spray intranasal DAILY Qty: 18.2 5RF Rx Instructions: administer into each nostril Primary Care Provider: Gary Ramirez Referrals: Gary Ramirez MD [Primary Care Provider] - As Needed Disposition Disposition: Home, Self Care Discharge Date/Time: 10/20/23 13:51
[2023-10-20 13:47] VITALS: BP 143/77; PULSE 90; RESP 26; TEMP 36.3; O2SAT 92
== END 2023-10-20 13:51 | disposition home or self-care (01) ==
PROVIDERS: Emergency Provider Emergency Medicine; PCP Family Medicine; Visit Provider Emergency Medicine
DX: M79.10 Myalgia, unspecified site (principal); J44.9 Chronic obstructive pulmonary disease, unspecified; I10 Essential (primary) hypertension; Z99.81 Dependence on supplemental oxygen; Z79.899 Other long term (current) drug therapy; Z87.891 Personal history of nicotine dependence
CPT/HCPCS: 99282

== ENCOUNTER → 2024-02-22 | Outpatient (CLI) | payer BC, SELFPAY ==
[2024-02-22 10:25] LABS: Hematocrit 54.4 % (40-54); Hemoglobin 17.4 g/dL (13.0-16.5); Mean Corpuscular Hgb 30.2 pg (27.0-32.0); Mean Corpuscular Volume 94.4 fL (80-94); Mean Platelet Vol. 10.8 fl (6.2-12.0); Platelet Count 232 K/mm3 (150-450); RBC Distribution Width CV 14.3 % (11.6-14.6); RBC Distribution Width SD 49.5 fl (35.1-43.9); Red Blood Count 5.76 M/mm3 (4.6-6.2)
[2024-02-22 10:45] LABS: ALB/GLOB Ratio 0.9 RATIO (0.9-2.4); AST(SGOT) 19 U/L (15-37); Alanine Aminotransfer ALT/SGPT 31 U/L (16-61); Albumin, Serum 3.4 g/dL (3.2-5.0); Alkaline Phosphatase 85 U/L (45-117); Anion Gap 4 (5-15); BUN 26 mg/dL (7-18); BUN/Creat Ratio 27.6 RATIO (10-20); Calcium,Total 9.2 mg/dL (8.5-10.1); Chloride 106 mmol/L (98-107); Creatinine, Serum 0.94 mg/dL (0.70-1.30); EST Glomerular Filtration Rate 85 mL/min (>60); Est Glom Filt Rate - Afr Amer 103 mL/min (>60); Globulin 3.7 g/dL (2.2-4.2); Glucose 121 mg/dL (74-106); PSA,Total - Annual Screen 1.29 ng/mL (0.00-4.00); Potassium 4.3 mmol/L (3.5-5.1); Protein, Total 7.1 g/dL (6.4-8.2); Sodium Level 139 mmol/L (136-145)
== END | disposition home or self-care (01) ==
LOC: MTLAB 07:04
PROVIDERS: PCP Family Medicine; Referring Provider Family Medicine; Visit Provider Family Medicine
DX: J44.9 Chronic obstructive pulmonary disease, unspecified (principal); E78.5 Hyperlipidemia, unspecified; N52.9 Male erectile dysfunction, unspecified; Z12.5 Encounter for screening for malignant neoplasm of prostate
CPT/HCPCS: 36415; 80053; 84153; 84403; 85027; G0103

== ENCOUNTER → 2024-08-10 | Outpatient (CLI) | payer BC, SELFPAY ==
[2024-08-10 18:05] LABS: Anion Gap 5 (5-15); BUN 23 mg/dL (7-18); BUN/Creat Ratio 26.3 RATIO (10-20); Calcium,Total 8.9 mg/dL (8.5-10.1); Chloride 105 mmol/L (98-107); Cholesterol 157 mg/dL (200); Creatinine, Serum 0.88 mg/dL (0.70-1.30); EST Glomerular Filtration Rate 92 mL/min (>60); Est Glom Filt Rate - Afr Amer 112 mL/min (>60); Ferritin 42 ng/mL (26-388); Glucose 118 mg/dL (74-106); High Density Lipoprotein 48 mg/dL; Iron 76 ug/dL (65-175); Potassium 4.2 mmol/L (3.5-5.1); Sodium Level 137 mmol/L (136-145); Triglycerides 84 mg/dL; Very Low Density Lipoprotein 17 mg/dL (5-40)
[2024-08-14 16:09] LABS: Erythropoietin 15.9 mIU/mL (2.6-18.5)
== END | disposition home or self-care (01) ==
PROVIDERS: PCP Family Medicine; Referring Provider Family Medicine; Visit Provider Family Medicine
DX: R71.8 Other abnormality of red blood cells (principal); E78.00 Pure hypercholesterolemia, unspecified

== ENCOUNTER 2024-10-21 17:21 | Emergency (ER) | payer BC, SELFPAY ==
[2024-10-21 17:23] VITALS: BP 152/84; PULSE 92; RESP 20; TEMP 36.8; O2SAT 90; BMI 39.0
--- NOTE | 2024-10-21 17:30 | EKG12_ITS ---
Test Reason : SOB Blood Pressure : */* mmHG Vent. Rate : 81 BPM Atrial Rate : 81 BPM P-R Int : 192 ms QRS Dur : 84 ms QT Int : 348 ms P-R-T Axes : 74 22 54 degrees QTcB Int : 404 ms Normal sinus rhythm Normal ECG When compared with ECG of 14-Feb-2019 03:10, No significant change was found Confirmed by Ahmet Seymour ([id number]), website/blog editor LINN NEGRON ([id number]) on 10/26/2024 10:03:43 AM Referred By: Confirmed By: Ahmet Seymour
--- NOTE | 2024-10-21 17:31 | EX.ED.DYSGE1 ---
HPI <NANCY Gerber - Last Filed: 10/21/24 19:22> History of Present Illness Chief Complaint: Shortness of Breath Narrative Narrative: Patient 59-year-old male, patient history obesity, hypertension, COPD, patient wears 2 L nasal cannula oxygen at night. Over the last 3 days he notes he is having worsening coughing intermittently. Today, he coughed heavily and has pain to the left lateral ribs left anterior ribs. Patient states he now has pain with any coughing, movement. Patient did come by ambulance. Patient [place] any history of blood clots in the legs or lungs. Patient denies any fever or chills. Denies any sick contacts other than his son this was also multiple weeks ago. [facility] <NANCY Gerber - Last Filed: 10/21/24 19:22> [facility] Medical History (Updated 10/21/24 @ 19:[address] Stephen Jaffe MD) COPD (chronic obstructive pulmonary disease) Hypertension GERD (gastroesophageal reflux disease) COPD exacerbation Leukocytosis Home Medications ?Medication ?Instructions ?Recorded ?Last Taken ?Type valsartan 160 mg tablet 160 mg PO DAILY blood pressure 03/28/14 12/21/15 10:00 History pantoprazole 40 mg tablet,delayed 40 mg PO DAILY stomach 12/21/15 12/20/15 10:00 History release Oxygen, Home [Home Oxygen] 2 lpm CONT oxygen 02/15/19 Unknown History albuterol sulfate 2.5 mg/3 mL 2.5 mg (3 mL) inhalation Q2H PRN 02/15/19 Unknown Rx (0.083 %) solution for nebulization PRN Shortness Of Breath ##120 ipratropium 0.5 mg-albuterol 3 mg 3 ml inhalation Q4H.RT ##120 02/15/19 Unknown Rx (2.5 mg base)/3 mL nebulization soln furosemide 20 mg tablet (Lasix) 20 mg PO DAILY 04/15/22 Unknown History albuterol sulfate 90 mcg/actuation 2 puff inhalation Q4H PRN PRN SOB, 06/15/23 Unknown Rx aerosol inhaler wheezing ##2 fluticasone propionate 50 2 spray intranasal DAILY #18.2 mL 06/24/23 Unknown Rx mcg/actuation nasal spray,suspension tadalafil 5 mg tablet 5 mg PO DAILY 10/20/23 Unknown History fluticasone fur. 100 mcg-umeclid 1 inh inhalation QDAY #60 ea 09/05/24 Unknown Rx 62.5 mcg-vilant 25 mcg inhalat.powder (Trelegy Ellipta) albuterol sulfate 1.25 mg/3 mL 1.25 mg (3 mL) inhalation Q4H #90 10/21/24 Unknown Rx solution for nebulization mL hydrocodone-acetaminophen 5-325mg 1 tab PO Q6H PRN PRN Pain 3 days 10/21/24 Unknown Rx 5mg-325mg #10 TABLETS prednisone 20 mg tablet 40 mg (2 x 20 mg) PO DAILY 6 days 10/21/24 Unknown Rx #12 tabs Allergy/AdvReac Type Severity Reaction Status Date / Time Seasonal Allergies: Uncoded Allergy Sneezing, Verified 10/21/24 17:30 (environmental) throat congestion Family History Father Diabetes Surgical History History of back surgery Social History household members: spouse housing: house Smoking Status: Former smoker Tobacco: How many years used: 30 how long ago did patient quit smokin, 1.5ppd second hand exposure: Yes ROS <NANCY Gerber - Last Filed: 10/21/24 19:22> RUMA ED RUMA Narrative Constitutional: Negative for fever, chills, weight loss, weakness Eyes: Negative for vision loss, vision change, double vision ENT: Negative for any sore throat, ear pain, congestion Cardiovascular: Negative for any chest pain, tightness, palpitations. Positive chest wall pain Respiratory: Negative for any sputum production, hemoptysis, dyspnea, dyspnea on exertion, orthopnea. Positive for cough Gastrointestinal: Negative for any abdominal pain, nausea, vomiting, diarrhea, constipation, blood in stool, blood in vomit : Negative for any urinary frequency, dysuria, retention, blood in urine Muscle skeletal: Negative for any neck pain, back pain Neurological: Negative for any headache, syncope, dizziness Skin: Negative for any rashes, itching, abrasions, lacerations Psychiatric: Negative for any depression, anxiety, stress, suicidal ideation, homicidal ideation Hematologic: Negative for any excessive bruising, easy bleeding EXAM <NANCY Gerber - Last Filed: 10/21/24 19:22> Physical Exam Narrative Exam Narrative: Vital signs reviewed. Patient just resting is between 89 to 88% on room air. I believe this is because the patient is not taking a big breath secondary to pain to the right ribs. HEET: Head normocephalic atraumatic, TMs clear bilaterally. Posterior pharynx is clear, moist mucous membranes. Nares clear bilaterally. Neck: Supple with no lymphadenopathy or tenderness. No signs of meningismus. Cardiac: Regular rate and rhythm no murmurs gallops or rubs, equal peripheral pulses bilaterally. Respiratory: Lungs were diminished in the bases, patient is not taking a full breath secondary to pain. Patient does have some chest tenderness to the lower lateral and anterior ribs on the right side. They do not feel any crepitus. Abdomen: Soft, nontender, nondistended. No abdominal bruit or pulsatile masses. No hepatosplenomegaly Extremities: No peripheral edema, no signs of gross trauma or deformity. Active full range of motion of all extremities. Neuro: Cranial nerves II through XII intact, no focal neurological deficits. Skin: Clean dry and intact with no rash, purpura, petechiae, vesicles or pustules. Backs/flank: No CVA tenderness, no midline spinal tenderness, no deformity. Psych: Normal mood and affect. No SI, HI or acute psychosis. Const Vital Signs: 10/21/24 17:23 10/21/24 17:27 10/21/24 17:32 Temperature 98.3 F Temperature Source Oral Pulse Rate 92 Respiratory Rate 20 H Respiratory Effort Short of Breath Blood Pressure 152/84 H Blood Pressure Mean 106 Pulse Ox 90 Oxygen Delivery Method Room Air Room Air Room Air 10/21/24 18:00 10/21/24 18:00 Temperature Temperature Source Pulse Rate 86 Respiratory Rate 15 Respiratory Effort Blood Pressure Blood Pressure Mean Pulse Ox 89 Oxygen Delivery Method Room Air Positive well nourished and well developed General Appearance ED: well developed <Dr. Stephen Jaffe MD - Last Filed: 10/21/24 17:47> Physical Exam Const Vital Signs: 10/21/24 17:23 10/21/24 17:27 10/21/24 17:32 Temperature 98.3 F Temperature Source Oral Pulse Rate 92 Respiratory Rate 20 H Respiratory Effort Short of Breath Blood Pressure 152/84 H Blood Pressure Mean 106 Pulse Ox 90 Oxygen Delivery Method Room Air Room Air Room Air 10/21/24 18:00 10/21/24 18:00 Temperature Temperature Source Pulse Rate 86 Respiratory Rate 15 Respiratory Effort Blood Pressure Blood Pressure Mean Pulse Ox 89 Oxygen Delivery Method Room Air [facility] <Catarino Aguirre NPRennyC - Last Filed: 10/21/24 19:22> [facility] Lab Data Labs: Laboratory Results - last 24 hr 10/21/24 17:30 WBC 7.2 RBC 5.59 Hgb 17.3 H Hct 52.2 MCV 93.4 MCH 30.9 MCHC 33.1 RDW Std Deviation 48.0 H RDW Coeff of Alberto 14.0 Plt Count 237 MPV 10.2 Immature Gran % (Auto) 0.600 Neut % (Auto) 55.0 Lymph % (Auto) 17.9 L [place] % (Auto) 20.8 H Eos % (Auto) 4.7 Baso % (Auto) 1.0 Absolute Neuts (auto) 4.0 Absolute Lymphs (auto) 1.29 Nucleated RBC % 0 Sodium 139 Potassium 4.5 Chloride 101 Carbon Dioxide 27.3 Anion Gap 11 BUN 20 H Creatinine 0.89 Estim Creat Clear Calc 99.84 Est GFR (MDRD) Non-Af 94 BUN/Creatinine Ratio 23.0 H Glucose 144 H Calcium 9.2 Radiography Diagnostic Testing: Clinical Impression(s) from Imaging Studies Chest X-Ray 10/21/24 18:15 IMPRESSION: 1. No acute cardiopulmonary process. Reading Location: [facility] EKG Normal sinus rhythm: Attestation: I personally reviewed and interpreted this EKG as follows: Interpretation: Sinus Rhythm Comments: Normal sinus rhythm, rate of 81 bpm, CA interval 192 ms, QRS duration 84 ms, no acute ST elevation, no acute infarct noted. Treatment and Re-Evaluation :: Differential diagnosis includes however is not limited to: COPD exacerbation, community-acquired pneumonia, COVID-19, influenza, RSV, secondary to the anterior, lateral rib pain, possible for pneumothorax pneumoperitoneum Patient appears to be in no significant respiratory distress, patient is 88 to 89% on room air. Patient's biggest complaint is pain to the right anterior, lateral ribs. Chest x-ray two-view will be obtained, basic laboratory values EKG, breathing treatments IV steroids IV Toradol. All radiologic examinations were read, reviewed by the emergency department attending. From these reads, a plan of care will be put in place. Patient x-ray shows no acute cardiopulmonary process. Patient CBC CMP was unremarkable, no significant change. Patient was positive for RSV. Patient on room air whenever he speaking, he does go between 88 to 93%. I did offer the patient admission however after speak with the patient, he does have oxygen at home, he would like to be treated outpatient. I believe this is a appropriate plan of care. Patient will be given a prescription for albuterol nebulizers, steroid burst, he will also be given a short course of [place] for the significant pain in his right ribs for coughing. He is instructed to return for any worsening weakness, fever chills nausea or vomiting. All questions answered, stable for discharge. <Dr. Stephen Jaffe MD - Last Filed: 10/21/24 17:47> [facility] Narrative Medical decision making narrative: I have personally performed a face to face assessment of the patient and have reviewed the AIRAM Note. I performed a substantive portion of the visit including all aspects of the following. My lima findings include: History is 69-year-old male history of COPD uses 2 L of oxygen at night. No cardiac history. No prior history of DVT or PE or risk factors. Son had a URI about a week ago. Patient's had 3 to 4 days of coughing. He is developed right lateral rib cage pain from coughing so hard. Nonproductive cough. No hemoptysis. No leg pain or swelling. He has been wheezing for 3 to 4 days. Currently not on steroids. Denies any chest pain. Exam is [69-year-old male sitting upright in bed. Family present at bedside. Pulse ox 90% on room air no hypoxia. No distress. H EENT exam pupils round reactive light. Moist mucous membranes. Neck nontender no lymphadenopathy. No JVD. Lungs prolonged expiratory phase. Slightly diminished breath sounds due to not wanted take a deep breath due to rib cage pain. I do not hear any rales or rhonchi. Is a few scattered wheezes. Heart regular rhythm rate about 90 no murmur. Chest wall is reproducible right lateral rib cage pain. There is no crepitance or subcu air there is no bruising. Abdomen is soft and nontender. No peritoneal signs. Moving all 4 extremities. Normal emission specialist. Normal dorsi plantarflexion. Calves are nontender without edema. Palpable radial pulse. Back nontender. Neurologically is awake and alert answering questions following commands.] Medical Decision Making [69-year-old male suspect exacerbation of COPD rule out pneumonia, pneumothorax, COVID and flu. Chest x-ray and labs. EKG. I do not think this is cardiac. Does not need a troponin. He has no history of DVT or PE and I do not think that is what this is either. He will be treated with aerosols and Solu-Medrol and reassess.] Other additions or changes: [None] History & Record Review Discussion w/independent historian: Patient and Family Additional record(s) reviewed:: Prior inpatient record, Prior outpatient record, Prior ED visit and Prior labs Lab Data Attestation: I reviewed the patient's lab results. Lab results narrative: CBC shows a white count of 7. H&H is 17 and 52. Platelets 237. Consistent with prior CBCs. Labs: Laboratory Results - last 24 hr 10/21/24 17:30 WBC 7.2 RBC 5.59 Hgb 17.3 H Hct 52.2 MCV 93.4 MCH 30.9 MCHC 33.1 RDW Std Deviation 48.0 H RDW Coeff of Alberto 14.0 Plt Count 237 MPV 10.2 Immature Gran % (Auto) 0.600 Neut % (Auto) 55.0 Lymph % (Auto) 17.9 L [place] % (Auto) 20.8 H Eos % (Auto) 4.7 Baso % (Auto) 1.0 Absolute Neuts (auto) 4.0 Absolute Lymphs (auto) 1.29 Nucleated RBC % 0 Sodium 139 Potassium 4.5 Chloride 101 Carbon Dioxide 27.3 Anion Gap 11 BUN 20 H Creatinine 0.89 Estim Creat Clear Calc 99.84 Est GFR (MDRD) Non-Af 94 BUN/Creatinine Ratio 23.0 H Glucose 144 H Calcium 9.2 Radiography Chest X-Ray - ED: 2 View and Read by ED Physician Diagnostic Testing: Clinical Impression(s) from Imaging Studies Chest X-Ray 10/21/24 18:15 IMPRESSION: 1. No acute cardiopulmonary process. Reading Location: [facility] Discharge Plan Triage Chief Complaint: Shortness of Breath ED Midlevel Provider: Catarino Aguirre ED Provider: Stephen Jaffe Dx/Rx/DC Orders Clinical Impression: Acute exacerbation of chronic obstructive pulmonary disease, RSV bronchitis, Chest wall muscle strain Instructions: Rapid Detection RSV, ED Chest Wall Pain, Costochondritis, ED Chest Wall Strain Prescriptions: New albuterol sulfate 1.25 mg/3 mL solution for nebulization 1.25 mg inhalation Q4H Qty: 90 0RF prednisone 20 mg tablet 40 mg PO DAILY 6 Days Qty: 12 0RF hydrocodone-acetaminophen 5-325 mg tablet 1 tab PO Q6H PRN PRN (Reason: Pain) 3 Days Qty: 10 0RF No Action furosemide [Lasix] 20 mg tablet 20 mg PO DAILY albuterol sulfate 90 mcg/actuation HFA aerosol inhaler 2 puff inhalation Q4H PRN PRN (Reason: SOB, wheezing) Qty: 2 0RF Patient Comments: breathing valsartan 160 MG tablet 160 mg PO DAILY Patient Comments: heart pantoprazole 40 MG tablet 40 mg PO DAILY Patient Comments: reduce stomach acid Oxygen, Home [Home Oxygen] 2 lpm NASAL CONT Patient Comments: oxygen Rx Instructions: albuterol sulfate 2.5 MG/3 ML solution for nebulization 2.5 mg inhalation Q2H PRN PRN (Reason: Shortness Of Breath) Qty: 120 0RF ipratropium-albuterol 3 ML solution for nebulization 3 ml inhalation Q4H.RT Qty: 120 0RF tadalafil 5 mg tablet 5 mg PO DAILY fluticasone propionate 50 mcg/actuation spray,suspension 2 spray intranasal DAILY Qty: 18.2 5RF Rx Instructions: administer into each nostril Trelegy Ellipta 100-62.5-25 mcg blister with device 1 inh INHALATION QDAY Qty: 60 11RF Rx Instructions: administer at approximately the same time(s) each day Primary Care Provider: Dawood Ramirez Referrals: Dawood Ramirez MD [Primary Care Provider] - Activity Restrictions/Additional Instructions: He will take the prednisone every day warning until finished. The albuterol nebulizer as needed. in the the [place] is a pain medicine for your ribs, as well as a cough suppressant. However this can make you tired. Please keep an eye on your oxygen, if you get worse you need to return Print Language: Persian Disposition Disposition: Home, Self Care
[2024-10-21] MEDS: Ketorolac 15 MG/ML Vial IV (17:39)
[2024-10-21] MEDS: MethylPREDNISolone 125 MG/2 ML Vial IV (17:40)
[2024-10-21] MEDS: Ipratropium/Albuterol Sulfate 3 ML AMPUL.NEB INHALATION (17:42)
[2024-10-21] MEDS: Albuterol 2.5 MG/3 ML VIAL.NEB. INHALATION (17:42)
[2024-10-21 17:45] LABS: Absolute Lymphocyte Count 1.29 X10^3/uL (0.83-4.51); Basophil# 0.07 X10^3/uL; Eosinophil# 0.34 X10^3/uL; Eosinophils% 4.7 % (0-5); Hematocrit 52.2 % (40-54); Hemoglobin 17.3 g/dL (13.0-16.5); Lymphocyte # 1.29 X10^3/ul (0.83-4.51); Lymphocyte % 17.9 % (19-41); Mean Corp Hgb Conc 33.1 g/dL (32-36); Mean Corpuscular Hgb 30.9 pg (27.0-32.0); Mean Corpuscular Volume 93.4 fL (80-94); Mean Platelet Vol. 10.2 fl (6.2-12.0); Monocyte% 20.8 % (0-10); NRBC Flagged by Analyzer 0 % (0-5); Neutrophil # 3.96 X10^3/uL (2.7-7.7); Platelet Count 237 K/mm3 (150-450); Red Blood Count 5.59 M/mm3 (4.6-6.2); White Blood Count 7.2 K/mm3 (4.4-11.0)
[2024-10-21 18:00] VITALS: PULSE 86; RESP 15; O2SAT 89
--- NOTE | 2024-10-21 18:15 | RAD_ITS ---
PROCEDURE: CHEST PA AND LATERAL 10/21/2024 REASON FOR EXAM: COUGH TECHNIQUE: Frontal and lateral views of the chest. COMPARISON: 02/14/2019 FINDINGS: The lungs are clear. No pleural effusion or pneumothorax. The cardiomediastinal silhouette is unremarkable. No acute osseous or soft tissue abnormality. RAD/Chest PA and Lateral IMPRESSION: 1. No acute cardiopulmonary process. Reading Location: [facility]
[2024-10-21 18:50] LABS: Anion Gap 11 (5-15); BUN 20 mg/dL (4-19); Calcium,Total 9.2 mg/dL (7.6-11.0); Carbon Dioxide 27.3 mmol/L (21.0-32.0); Chloride 101 mmol/L (98-108); Creatinine, Serum 0.89 mg/dL (0.70-1.20); EST Glomerular Filtration Rate 94 (>60); Estimated Creatinine Clearance 99.84 ml/min (50-250); Glucose 144 mg/dL (70-99); Potassium 4.5 mmol/L (3.3-5.1); Sodium Level 139 mmol/L (133-145)
[2024-10-21 19:30] VITALS: BP 124/87; PULSE 94; RESP 18; TEMP 36.6; O2SAT 92
== END 2024-10-21 19:32 | disposition home or self-care (01) ==
PROVIDERS: Nurse Practitioner; Emergency Provider Emergency Medicine; PCP Family Medicine; Visit Provider Emergency Medicine
DX: R06.02 Shortness of breath (principal); J44.1 Chronic obstructive pulmonary disease with (acute) exacerbation; J20.5 Acute bronchitis due to respiratory syncytial virus; Z87.891 Personal history of nicotine dependence; I10 Essential (primary) hypertension; S29.011A Strain of muscle and tendon of front wall of thorax, initial encounter; K21.9 Gastro-esophageal reflux disease without esophagitis; Z79.899 Other long term (current) drug therapy; Z79.51 Long term (current) use of inhaled steroids; X58.XXXA Exposure to other specified factors, initial encounter
CPT/HCPCS: 71046; 80048; 85025; 87631; 93005; 94640; 96374; 96375; 99285; A4216

== ENCOUNTER 2024-10-26 22:42 | Emergency (ER) | payer BC, SELFPAY ==
[2024-10-26 22:43] VITALS: BP 178/92; PULSE 112; RESP 25; TEMP 36.8; O2SAT 90; BMI 39.7
[2024-10-26 23:32] LABS: Absolute Lymphocyte Count 0.85 X10^3/uL (0.83-4.51); Absolute Neutrophil Count 10.1 X10^3/uL (2.0-7.7); Basophil# 0.04 X10^3/uL; Basophil% 0.3 % (0-1); Eosinophil# 0.06 X10^3/uL; Eosinophils% 0.5 % (0-5); Hematocrit 47.6 % (40-54); Hemoglobin 16.2 g/dL (13.0-16.5); Lymphocyte # 0.85 X10^3/ul (0.83-4.51); Lymphocyte % 7.1 % (19-41); Mean Corpuscular Hgb 30.9 pg (27.0-32.0); Mean Corpuscular Volume 90.7 fL (80-94); Mean Platelet Vol. 10.2 fl (6.2-12.0); Monocyte# 0.72 X10^3/uL; Monocyte% 6.1 % (0-10); NRBC Flagged by Analyzer 0 % (0-5); Neutrophil % 84.9 % (47-70); Platelet Count 271 K/mm3 (150-450); RBC Distribution Width CV 13.7 % (11.6-14.6); Red Blood Count 5.25 M/mm3 (4.6-6.2); White Blood Count 11.9 K/mm3 (4.4-11.0)
[2024-10-26 23:41] LABS: Prothrombin Time (Protime)PT. 13.1 SECONDS (11.7-14.9)
[2024-10-26 23:42] LABS: Partial Thromboplast Time 24.7 Seconds (24.1-36.2)
[2024-10-26 23:47] VITALS: BP 149/85; PULSE 100; RESP 14; TEMP 36.8; O2SAT 93
[2024-10-26 23:57] LABS: Magnesium 1.8 mg/dL (1.5-2.2)
--- NOTE | 2024-10-27 | CT_ITS ---
PROCEDURE: CTA CHEST W/WO CONTRAST N/A REASON FOR EXAM: CHEST PAIN TECHNIQUE: CTA imaging of the chest, abdomen and pelvis without and with intravenous contrast. Coronal and Sagittal reconstruction series were provided. 3D, 3D post processing, 3D reconstructions, Maximum intensity projection (MIPs) Volume rendering and Shaded surface rendering was provided. CONTRAST: 91 cc Isovue 370 IV One or more dose reduction techniques were used (e.g., Automated exposure control, adjustment of the mA and/or kV according to patient size, use of iterative reconstruction technique). RADIATION DOSE SUMMARY: CTDlvol: 15.75 mGy DLP: 541.24 mGycm COMPARISON: Chest radiograph 10/21/2024 FINDINGS: The study is limited by apparent timing, bolus concentration and motion artifact. No evidence of large central or hilar pulmonary embolism. The segmental and subsegmental evaluation is limited. No CT evidence of right heart strain. Thoracic aorta appears within limits with atherosclerotic changes noted. Coronary calcification and/or stents. No pericardial or pleural effusion. Sequela of previous granulomatous disease noted. Right posterolateral chest and upper abdominal wall soft tissue thickening, edema, clinically correlate. The intercostal distance between the right 8th and 9th ribs is asymmetrically widened for example coronal 210 and MIP sagittal 26. This may represent possible intercostal soft tissue/muscular injury, clinically correlate. No fracture identified. Motion artifact limits the lung evaluation. The central airways appear patent. Question appearance of a mild bilateral perihilar ground-glass mosaic opacity which may be inflammatory or infectious. Platelike areas at the right middle lobe, lingula and right lower lobe may represent atelectasis. Right posterior recess dependent basilar atelectasis. CT/CTA Chest W/WO Contrast IMPRESSION: The study is limited by apparent timing, bolus concentration and motion artifac t. No evidence of large central or hilar pulmonary embolism. The segmental and subsegmental evaluation is limited. No CT evidence of right heart strain. Right posterolateral chest and upper abdominal wall soft tissue thickening, lucía ma, clinically correlate. The intercostal distance between the right 8th and 9th ribs is asymmetrically widened for examp le coronal 210 and MIP sagittal 26. This may represent possible intercostal soft tissue/muscular injury, clinically correlat e. No fracture identified. Motion artifact limits the lung evaluation. The central airways appear patent. Question appearance of a mild bilateral perihilar ground-glass mosaic opacity which may be inflammatory or infectious. Platelike areas at the right middle lobe, lingula and right lower lobe may represent atelectasis. Right posterior recess dependent basilar atelectasis. Coronary calcification and/or stents. No Reading Location: [id number]
[2024-10-27 00:06] LABS: Anion Gap 10 (5-15); BUN 29 mg/dL (4-19); BUN/Creat Ratio 31.4 RATIO (10-20); Calcium,Total 8.9 mg/dL (7.6-11.0); Carbon Dioxide 23.6 mmol/L (21.0-32.0); Chloride 102 mmol/L (98-108); Creatinine, Serum 0.91 mg/dL (0.70-1.20); EST Glomerular Filtration Rate 93 (>60); Estimated Creatinine Clearance 98.76 ml/min (50-250); Glucose 221 mg/dL (70-99); Sodium Level 135 mmol/L (133-145)
[2024-10-27] MEDS: Morphine 4 MG/ML Syringe IV (00:26)
[2024-10-27] MEDS: 0.9% Normal Saline (500mL Bag) 500 ML 999 ML IV (00:26)
[2024-10-27] MEDS: diazePAM 5 MG Tablet PO (00:26)
[2024-10-27] MEDS: Ondansetron 4 MG/2 ML Vial IV (00:26)
--- NOTE | 2024-10-27 01:03 | EDS_ITS ---
HPI History of Present Illness Chief Complaint: Chest Other Informant: patient, family and EMS Narrative Narrative: Patient is a 69-year-old male with past medical history of COPD and hypertension who states he wears oxygen typically at night. He was recently in the hospital secondary to cough and shortness of breath and reports he was diagnosed with RSV. Since that time he has been wearing his oxygen essentially 15/02. He denies any trauma but states with any cough or motion he has severe right sided chest discomfort. He reports he had an x-ray obtained recently which revealed no obvious pneumonia or pneumothorax or rib fracture and was placed on hydro codone. Despite taking this his symptoms have persisted. He states the pain is not any better with the prescribed medication and secondary to the persistent pain comes in for evaluation [facility] Medical History (Updated 10/27/24 @ 03:[address] Gera Duncan, DO) Allergic rhinitis Obesity Former tobacco use COPD (chronic obstructive pulmonary disease) Hypertension GERD (gastroesophageal reflux disease) Home Medications ?Medication ?Instructions ?Recorded ?Last Taken ?Type valsartan 160 mg tablet 160 mg PO DAILY blood pressu re 03/28/14 12/21/15 10:00 History pantoprazole 40 mg tablet,delayed 40 mg PO DAILY stoma ch 12/21/15 12/20/15 10:00 History release Oxygen, Home [Home Oxygen] 2 lpm CONT oxygen 02/15/19 Unknown History albuterol sulfate 2.5 mg/3 mL 2.5 mg (3 mL) inhalation Q2H PRN 02/15/19 Unknown Rx (0.083 %) solution for nebulization PRN Shortness Of B reath ##120 ipratropium 0.5 mg-albuterol 3 mg 3 ml inhalation Q4H. RT ##120 02/15/19 Unknown Rx (2.5 mg base)/3 mL nebulization soln furosemide 20 mg tablet (Lasix) 20 mg PO DAILY 2 Unknown History fluticasone propionate 50 2 spray intranasal DAILY #18 .2 mL 06/24/23 Unknown Rx mcg/actuation nasal spray,suspension tadalafil 5 mg tablet 5 mg PO DAILY 10/20/23 Unkno wn History fluticasone fur. 100 mcg-umeclid 1 inh inhalation QDAY #60 ea 09/05/24 Unknown Rx 62.5 mcg-vilant 25 mcg inhalat.powder (Trelegy Ellipta) albuterol sulfate 1.25 mg/3 mL 1.25 mg (3 mL) inhalati on Q4H #90 10/21/24 Unknown Rx solution for nebulization mL hydrocodone-acetaminophen 5-325mg 1 tab PO Q6H PRN PRN Pain 3 days 10/21/24 Unknown Rx 5mg-325mg #10 TABLETS prednisone 20 mg tablet 40 mg (2 x 20 mg) PO DAILY 6 days 10/21/24 Unknown Rx #12 tabs diazepam 5 mg tablet (Valium) 5 mg PO TID PRN muscle s pasm 5 10/27/24 Unknown Rx days #15 tabs oxycodone-acetaminophen 5 mg-325 1 tab PO Q6H PRN pain 5 days #20 10/27/24 Unknown Rx mg tablet (Percocet) tabs Allergy/AdvReac Type Severity Reaction Status Date / Time Seasonal Allergies: Uncoded Allergy Sneezing, Verified 10/21/24 17:30 (environmental) throat congestion Family History (Updated 10/26/24 @ 23:[address] Ruchi Griggs MD) Father Diabetes Heart disease Mother Heart disease Dementia Surgical History History of back surgery Social History household members: spouse housing: house Smoking Status: Former smoker Tobacco: How many years used: 30 how long ago did patient quit smokin, 1.5ppd second hand exposure: Yes ROS ROS ED Constitutional Constitutional ED: Denies chills or fever(s) ENT ENT ED: Reports rhinorrhea; Denies sore throat Cardiovascular Cardiovascular: Reports chest pain Respiratory/Chest Respiratory/Chest: Reports cough and dyspnea Gastrointestinal Gastrointestinal: Denies abdominal pain, diarrhea, nausea or vomiting Genitourinary Genitourinary ED: Denies dysuria Musculoskeletal Musculoskeletal: Reports back pain Integumentary Denies rash Neurologic Neurologic: Denies headache(s) Hematologic/Lymphatic Hematologic/Lymphatic: Denies easy bleeding or easy bruising Allergic/Immunologic Allergic/Immunologic ED: Denies mouth swelling or tongue swelling EXAM Physical Exam Const Vital Signs: 10/26/24 22:43 10/26/24 23:47 10/27/24 01:34 Temperature 98.3 F 98.3 F 98.0 F Temperature Source Oral Temporal Pulse Rate 112 H 100 97 Respiratory Rate 25 H 14 18 Blood Pressure 178/92 H 149/85 H 150/90 H Blood Pressure Mean 120 106 110 Pulse Ox 90 93 94 Oxygen Delivery Method Nasal Cannula Nasal Cannula Oxygen Flow Rate (L/min) 4 4 Positive well nourished and well developed General Appearance ED: well developed HEENT HEENT Narrative: No tongue or lip swelling no oral lesions no airway edema or compromise; no secondary findings to suggest infection in the posterior pharynx Eyes PERRL and EOMs intact bilaterally General Eye ED: Negative for scleral icterus Neck supple and no JVD Neck Narrative: No nuchal rigidity or meningeal signs Chest Wall Chest Narrative: There is reproducible pain to the right posterior lateral chest wall rib regions 7-10. There is no obvious bony deformity or subcutaneous emphysema. The patient does have ecchymotic lesion in this area. No overlying erythema or warmth to suggest infectious process. Resp Resp Narrative: Patient is tachypneic and breath sounds are diminished throughout with diffuse inspiratory and expiratory wheeze correlating to history of COPD No stridor no grunting no dyspnea with speech. Cardio regular rhythm Rate: tachycardic and other Other Details: Tachycardic rate with regular rhythm Radial and carotid pulses are equal and symmetric GI non-tender, non-distended and no masses GI Narrative: Obese soft nontender and nondistended with hypoactive bowel sounds No voluntary guarding or rigidity or pulsatile mass Auscultation: hypoactive bowel sounds Palpation: soft Extremity Extremity Narrative: Trace to +1 pitting edema to the bilateral lower extremities that is equal and symmetric Negative Homans' sign bilaterally Neuro oriented x3, CN's II-XII intact bilaterally and no sensory deficits noted Sensorium / Orientation: alert Psych mental status grossly normal Skin Skin Narrative: Ecchymosis with soft tissue swelling along the right posterior lateral ribs as documented above MDM MDM MDM Narrative Medical decision making narrative: Patient arrived to the ER hypertensive but he has a past medical history of this. He was also on oxygen but has COPD and states he typically wears at nighttime as been wearing it 24/ since his RSV diagnosis. With his report of right sided chest discomfort there is concern that he may have developed a potential pneumonia or pneumothorax or rib fracture or pneumomediastinum. Patient also could have a pulmonary embolus. Therefore I did elect to perform basic laboratory studies and a CTA of the chest. Labs revealed no clinically significant findings. CTA revealed swelling of the posterior lateral right chest near the lower ribs with widening of the eighth and ninth rib space concerning for muscular tear. On exam he does have ecchymosis near this area which would correlate with this. However as he is not hypoxic he does not have a PE or pneumothorax or dissection there is no need for emergent intervention in the hospital. Patient can be given symptomatic medications and is otherwise safe for discharge History & Record Review Discussion w/independent historian: Patient and Family Lab Data Attestation: I reviewed the patient's lab results. Labs: Laboratory Results - last 24 hr 10/26/24 23:22 WBC 11.9 H RBC 5.25 Hgb 16.2 Hct 47.6 MCV 90.7 MCH 30.9 MCHC 34.0 RDW Std Deviation 46.0 H RDW Coeff of Alberto 13.7 Plt Count 271 MPV 10.2 Immature Gran % (Auto) 1.100 H Neut % (Auto) 84.9 H Lymph % (Auto) 7.1 L [place] % (Auto) 6.1 Eos % (Auto) 0.5 Baso % (Auto) 0.3 Absolute Neuts (auto) 10.1 H Absolute Lymphs (auto) 0.85 Nucleated RBC % 0 PT 13.1 INR 1.0 APTT 24.7 Sodium 135 Potassium 5.0 Chloride 102 Carbon Dioxide 23.6 Anion Gap 10 BUN 29 H Creatinine 0.91 Estim Creat Clear Calc 98.76 Est GFR (MDRD) Non-Af 93 BUN/Creatinine Ratio 31.4 H Glucose 221 H Calcium 8.9 Magnesium 1.8 Radiography Diagnostic Testing: Clinical Impression(s) from Imaging Studies Chest CTA 10/27/24 00:00 IMPRESSION: The study is limited by apparent timing, bolus concentration and motion artifact. No evidence of large central or hilar pulmonary embolism. The segmental and subsegmental evaluation is limited. No CT evidence of right heart strain. Right posterolateral chest and upper abdominal wall soft tissue thickening, edema, clinically correlate. The intercostal distance between the right 8th and 9th ribs is asymmetrically widened for example coronal 210 and MIP sagittal 26. This may represent possible intercostal soft tissue/muscular injury, clinically correlate. No fracture identified. Motion artifact limits the lung evaluation. The central airways appear patent. Question appearance of a mild bilateral perihilar ground-glass mosaic opacity which may be inflammatory or infectious. Platelike areas at the right middle lobe, lingula and right lower lobe may represent atelectasis. Right posterior recess dependent basilar atelectasis. Coronary calcification and/or stents. No Reading Location: [facility] Discharge Plan Triage Chief Complaint: Chest Other ED Provider: Gera Duncan Dx/Rx/DC Orders Clinical Impression: Tear of intercostal muscle, COPD (chronic obstructive pulmonary disease), RSV bronchitis, Hypertension Instructions: ED Strain Chest Wall Prescriptions: New oxycodone-acetaminophen [Percocet] 5-325 mg tablet 1 tab PO Q6H PRN (Reason: pain) 5 Days Qty: 20 0RF diazepam [Valium] 5 mg tablet 5 mg PO TID PRN (Reason: muscle spasm) 5 Days Qty: 15 0RF No Action furosemide [Lasix] 20 mg tablet 20 mg PO DAILY valsartan 160 MG tablet 160 mg PO DAILY Patient Comments: heart pantoprazole 40 MG tablet 40 mg PO DAILY Patient Comments: reduce stomach acid Oxygen, Home [Home Oxygen] 2 lpm NASAL CONT Patient Comments: oxygen Rx Instructions: albuterol sulfate 2.5 MG/3 ML solution for nebulization 2.5 mg inhalation Q2H PRN PRN (Reason: Shortness Of Breath) Qty: 120 0RF ipratropium-albuterol 3 ML solution for nebulization 3 ml inhalation Q4H.RT Qty: 120 0RF albuterol sulfate 1.25 mg/3 mL solution for nebulization 1.25 mg inhalation Q4H Qty: 90 0RF prednisone 20 mg tablet 40 mg PO DAILY 6 Days Qty: 12 0RF hydrocodone-acetaminophen 5-325 mg tablet 1 tab PO Q6H PRN PRN (Reason: Pain) 3 Days Qty: 10 0RF tadalafil 5 mg tablet 5 mg PO DAILY fluticasone propionate 50 mcg/actuation spray,suspension 2 spray intranasal DAILY Qty: 18.2 5RF Rx Instructions: administer into each nostril Trelegy Ellipta 100-62.5-25 mcg blister with device 1 inh INHALATION QDAY Qty: 60 11RF Rx Instructions: administer at approximately the same time(s) each day Primary Care Provider: Dawood Ramirez Referrals: Dawood Ramirez MD [Primary Care Provider] - Activity Restrictions/Additional Instructions: Please stop the hydrocodone and been taking the oxycodone/Percocet for improved pain control. Add the Valium to help with muscle tension and spasm. Discussed obtaining outpatient MRI to further assess potential intercostal muscle tear with your family doctor and return to the ER should you have any further concerns Print Language: Upper Sorbian Disposition Disposition: Home, Self Care Discharge Date/Time: 10/27/24 01:36
[2024-10-27] MEDS: oxyCODONE 5 MG Tablet 10 MG PO (01:24)
[2024-10-27 01:34] VITALS: BP 150/90; PULSE 97; RESP 18; TEMP 36.7; O2SAT 94
== END 2024-10-27 01:36 | disposition home or self-care (01) ==
PROVIDERS: Emergency Provider Emergency Medicine; PCP Family Medicine; Visit Provider Emergency Medicine
DX: S29.011A Strain of muscle and tendon of front wall of thorax, initial encounter (principal); J44.0 Chronic obstructive pulmonary disease with (acute) lower respiratory infection; X58.XXXA Exposure to other specified factors, initial encounter; J20.5 Acute bronchitis due to respiratory syncytial virus; I10 Essential (primary) hypertension; Z79.51 Long term (current) use of inhaled steroids; Z79.899 Other long term (current) drug therapy; Z87.891 Personal history of nicotine dependence
CPT/HCPCS: 71275; 80048; 83735; 85025; 85610; 85730; 96361; 96374; 96375; 99284; Q9967; A4216; J2405

== ENCOUNTER → 2025-03-12 | Outpatient (CLI) | payer MEDICARE, OTHER, SELFPAY ==
--- NOTE | 2025-03-12 17:49 | CT_ITS ---
PROCEDURE: CTA CHST, ABD, PEL W AND/OR WO 03/12/2025 REASON FOR EXAM: AAA TECHNIQUE: Chest, abdomen and pelvis CT with intravenous contrast. Coronal and Sagittal reconstruction series were provided. One or more dose reduction techniques were used (e.g., Automated exposure control, adjustment of the mA and/or kV according to patient size, use of iterative reconstruction technique. PATIENT PREPARATION: Per protocol ORAL CONTRAST TYPE: None. CONTRAST: Isovue 370 VOLUME: 100 mL RADIATION DOSE SUMMARY: CTDlvol: 16.75 mGy DLP: 1348.97 mGycm COMPARISON: Prior study dated October 27, 2024. FINDINGS: CT CHEST: Hardware: None Lymph nodes: Small benign-appearing bilateral axillary lymph nodes. Heart and Vasculature: Mild degree of atherosclerotic plaque formation of the aortic arch. Minimal coronary artery calcification. Lungs and Airways: Stable minimal atelectasis and/or scarring at the lung bases. No focal infiltrate is seen. Pleura: No pleural effusion. Bones: Degenerative changes of the thoracic spine. The previously seen soft tissue swelling overlying the right lateral chest wall has resolved. CT ABDOMEN/PELVIS: Liver: Mild hepatomegaly. Gallbladder: Unremarkable Spleen: Normal size. Pancreas: Normal size without evidence of mass surrounding inflammation or ductal dilation. Adrenals: Unremarkable Kidneys: Normal renal sizes. No hydronephrosis. Bladder: Unremarkable. Prostatic enlargement. This is unchanged. Bowel: Colonic diverticulosis without diverticulitis. Appendix: Unremarkable Lymph nodes: Unremarkable. Vasculature: Atherosclerotic plaques of the abdominal aorta. Infrarenal abdominal aortic aneurysm with a transverse dimension of 37.3 mm. Peritoneum / Retroperitoneum: Unremarkable Bones: Degenerative changes of the spine. CT/CTA Chst, Abd, Pel W and/or WO IMPRESSION: Abdominal aortic aneurysm with a transverse dimension of 37.3 mm. Mild hepatomegaly. Sigmoid diverticulosis. Prostatic enlargement. Reading Location: [facility]
== END | disposition home or self-care (01) ==
LOC: CT 17:45
PROVIDERS: PCP Family Medicine; Referring Provider Family Medicine; Visit Provider Family Medicine
DX: I71.40 Abdominal aortic aneurysm, without rupture, unspecified (principal)
CPT/HCPCS: 71275; 74174; Q9967; A4216